=== PATIENT | female | born 1955 | race Caucasian/White ===

== ENCOUNTER 2017-10-24 14:19 | Inpatient (IN) | payer OTHER ==
[2017-10-24] MEDS: KETOROLAC 15 MG INJ IV (15:11)
[2017-10-24] MEDS: SOD CHLORIDE 0.9% 500 ML IV (15:12)
[2017-10-24] MEDS: LORAZEPAM 2 MG INJ IV (15:14)
[2017-10-24 15:17] LABS: ADD MAN DIFF? NO
[2017-10-24 15:18] LABS: WHITE BLOOD COUNT 9.9 10^3/ul (4.8-10.8)
[2017-10-24 15:18] LABS: BASOPHIL # 0.1 10^3/ul (0.0-0.1); BASOPHILS % 0.5 % (0.0-2.0); EOSINOPHILS # 0.2 10^3/ul (0.0-0.5); EOSINOPHILS % 2.1 % (0.0-7.0); HEMATOCRIT 34.1 % (37.0-47.0); LYMPHOCYTES % 30.5 % (15.0-51.0); MEAN CORPUSCULAR HEMOGLOBIN 27.3 pg (29.0-33.0); MEAN CORPUSCULAR HGB CONC 32.3 g/dl (32.0-37.0); MEAN CORPUSCULAR VOLUME 84.6 fl (82.0-101.0); MEAN PLATELET VOLUME 9.4 fl (7.4-10.4); MONOCYTE # 0.8 10^3/ul (0.3-0.9); MONOCYTES % 7.8 % (0.0-11.0); NEUTROPHIL # 5.8 10^3/ul (1.6-7.5); PLATELET COUNT 399 10^3/UL (140-415); RED BLOOD COUNT 4.03 10^6/ul (4.20-5.40); RED CELL DISTRIBUTION WIDTH 13.2 % (11.5-14.5)
[2017-10-24 15:38] LABS: ALANINE AMINOTRANSFERASE 25 IU/L (13-69); ALBUMIN 4.3 g/dl (3.3-4.9); ALBUMIN/GLOBULIN RATIO 0.95; ALKALINE PHOSPHATASE 97 IU/L (42-121); ANION GAP 20 (8-16); ASPARTATE AMINO TRANSFERASE 19 IU/L (15-46); BLOOD UREA NITROGEN 17 mg/dl (7-20); CALCIUM 10.2 mg/dl (8.4-10.2); CARBON DIOXIDE 26 mmol/L (21-31); CHLORIDE 101 mmol/L (97-110); CREATININE 1.05 mg/dl (0.44-1.00); GLUCOSE 110 mg/dl (70-220); LIPASE 335 U/L (23-300); POTASSIUM 3.7 mmol/L (3.5-5.1); SODIUM 143 mmol/L (135-144); TOTAL PROTEIN 8.8 g/dl (6.1-8.1)
[2017-10-24 15:49] LABS: TROPONIN-I < 0.012 ng/ml (0.00-0.12)
[2017-10-24] MEDS ORDERED: CEFTRIAXONE 1 GM/50 ML (PMX) 50 ML IVPB (17:00)
[2017-10-24] MEDS ORDERED: AZITHROMYCIN 500MG/NS (PMX) 250 ML IVPB (17:00)
[2017-10-24] MEDS: SODIUM CHLORIDE 0.9% 1L BAG IV* (17:18)
[2017-10-24] MEDS: SOD CHLORIDE 0.45% 1,000 ML IV ×2 (17:24→23:58)
[2017-10-24] MEDS: LEVOFLOXACIN 750MG/D5W (PMX) 150 ML IVPB (17:29)
[2017-10-24] MEDS ORDERED: ONDANSETRON 4 MG INJ IV (17:30)
[2017-10-24] MEDS ORDERED: NACL 0.9% 3 ML SYG IV (17:30)
[2017-10-24] MEDS ORDERED: hydrALAzine 20 MG INJ IV (17:30)
[2017-10-24] MEDS ORDERED: MAGNESIUM HYDROXIDE 30ML CUP PO (17:30)
[2017-10-24] MEDS ORDERED: LABETALOL HCL 20MG INJ IV (17:30)
[2017-10-24] MEDS ORDERED: NITROGLYCERIN (SL) 0.4 MG TAB SL (17:30)
[2017-10-24] MEDS ORDERED: DOCUSATE SODIUM 100 MG CAP PO (17:30)
[2017-10-24] MEDS: SOD CHLORIDE 0.9% 100 ML ×2 (17:49→20:08)
[2017-10-24] MEDS: IOHEXOL 100 ML (17:49)
[2017-10-24 17:54] LABS: ADD UMIC YES; UR ASCORBIC ACID NEGATIVE (NEGATIVE); UR BILIRUBIN (Dip) NEGATIVE (NEGATIVE); UR BLOOD (Dip) NEGATIVE (NEGATIVE); UR CLARITY CLEAR (CLEAR); UR COLOR STRAW (YELLOW); UR GLUCOSE (Dip) NEGATIVE (NEGATIVE); UR KETONES (Dip) NEGATIVE (NEGATIVE); UR LEUKOCYTE ESTERASE (Dip) TRACE Leu/ul (NEGATIVE); UR NITRITE (Dip) NEGATIVE (NEGATIVE); UR RBC 0 /HPF (0-5); UR SPECIFIC GRAVITY (Dip) 1.006 (1.003-1.030); UR TOTAL PROTEIN (Dip) NEGATIVE (NEGATIVE); UR UROBILINOGEN (Dip) NEGATIVE (NEGATIVE); UR WBC 1 /HPF (0-5)
[2017-10-24] MEDS: INSULIN ASPART [NOVOLOG] 3 ML PEN SC ×2 (18:00→21:00)
[2017-10-24] MEDS ORDERED: GLUCOSE GEL 15 GRAM TUBE BUCCAL (18:00)
[2017-10-24] MEDS ORDERED: GLUCOSE GEL 15 GRAM TUBE PO ×2 (18:00)
[2017-10-24] MEDS ORDERED: DEXTROSE 50% 50 ML SYRINGE IV ×2 (18:00)
[2017-10-24] MEDS ORDERED: GLUCAGON 1 MG INJ IM (18:00)
[2017-10-24] MEDS: IOHEXOL 300MG/ML 150 ML BTL (20:08)
[2017-10-24] MEDS: ATORVASTATIN 10 MG TAB PO ×2 (22:40→23:58)
[2017-10-24] MEDS: HYDROXYCHLOROQUINE 200 MG TAB PO (22:40)
[2017-10-24] MEDS: FAMOTIDINE 20 MG TAB PO (22:44)
[2017-10-24] MEDS: INSULIN GLARGINE [LANtus] 3 ML PEN SC (22:46)
[2017-10-24 23:01] LABS: TROPONIN-I < 0.012 ng/ml (0.00-0.12)
[2017-10-24] MEDS: HYDROCODONE/APAP (5/325) TAB PO (23:58)
[2017-10-24] MEDS: GABAPENTIN 300 MG CAP PO (23:58)
[2017-10-25] MEDS: ACCU-CHEK XX (02:00)
[2017-10-25] MEDS: INSULIN ASPART [NOVOLOG] 3 ML PEN SC ×4 (08:00→21:00)
[2017-10-25] MEDS: predniSONE 5 MG TAB PO (08:25)
[2017-10-25] MEDS: ALLOPURINOL 300 MG TAB PO (08:25)
[2017-10-25] MEDS: FAMOTIDINE 20 MG TAB PO ×2 (08:26→21:09)
[2017-10-25] MEDS: HYDROXYCHLOROQUINE 200 MG TAB PO ×2 (08:26→21:08)
[2017-10-25] MEDS: AMLODIPINE 10 MG TAB PO (08:26)
[2017-10-25] MEDS: MELOXICAM 15 MG TAB PO (08:27)
[2017-10-25] MEDS: HYDROCHLOROTHIAZIDE 25 MG TAB PO (08:28)
[2017-10-25] MEDS: HYDROCODONE/APAP (5/325) TAB PO ×2 (08:29→16:06)
[2017-10-25 09:06] LABS: ADD MAN DIFF? NO
[2017-10-25 09:12] LABS: WHITE BLOOD COUNT 7.4 10^3/ul (4.8-10.8)
[2017-10-25 09:12] LABS: BASOPHIL # 0.1 10^3/ul (0.0-0.1); BASOPHILS % 0.7 % (0.0-2.0); EOSINOPHILS # 0.3 10^3/ul (0.0-0.5); EOSINOPHILS % 3.4 % (0.0-7.0); HEMATOCRIT 31.7 % (37.0-47.0); HEMOGLOBIN 9.9 g/dl (12.0-16.0); LYMPHOCYTES # 2.6 10^3/ul (0.8-2.9); LYMPHOCYTES % 34.3 % (15.0-51.0); MEAN CORPUSCULAR HEMOGLOBIN 26.5 pg (29.0-33.0); MEAN CORPUSCULAR HGB CONC 31.2 g/dl (32.0-37.0); MEAN PLATELET VOLUME 9.9 fl (7.4-10.4); MONOCYTE # 0.8 10^3/ul (0.3-0.9); MONOCYTES % 11.3 % (0.0-11.0); NEUTROPHIL # 3.7 10^3/ul (1.6-7.5); NEUTROPHILS % 50.2 % (39.0-77.0); PLATELET COUNT 337 10^3/UL (140-415); RED BLOOD COUNT 3.73 10^6/ul (4.20-5.40); RED CELL DISTRIBUTION WIDTH 13.4 % (11.5-14.5)
[2017-10-25 09:22] LABS: HEMOGLOBIN A1C 6.3 % (0-5.9)
[2017-10-25 09:34] LABS: ALANINE AMINOTRANSFERASE 20 IU/L (13-69); ALBUMIN 3.6 g/dl (3.3-4.9); ALBUMIN/GLOBULIN RATIO 1.12; ALKALINE PHOSPHATASE 80 IU/L (42-121); ANION GAP 16 (8-16); ASPARTATE AMINO TRANSFERASE 18 IU/L (15-46); BLOOD UREA NITROGEN 14 mg/dl (7-20); CALCIUM 9.8 mg/dl (8.4-10.2); CARBON DIOXIDE 30 mmol/L (21-31); CHLORIDE 101 mmol/L (97-110); CHOLESTEROL 135 mg/dl (100-200); GLUCOSE 69 mg/dl (70-220); HDL CHOLESTEROL 65 mg/dl (35-98); LDL CHOLESTEROL,CALCULATED 56 mg/dl; MAGNESIUM 1.4 mg/dl (1.7-2.5); SODIUM 143 mmol/L (135-144); TOTAL PROTEIN 6.8 g/dl (6.1-8.1); TRIGLYCERIDES 70 mg/dl (0-149)
[2017-10-25 09:43] LABS: TROPONIN-I 0.013 ng/ml (0.00-0.12)
[2017-10-25] MEDS: LORAZEPAM 0.5 MG TAB PO (13:14)
[2017-10-25] MEDS ORDERED: ALBUTEROL/IPRATROPIUM (NEB) 3 ML AMP HHN (15:00)
[2017-10-25] MEDS: MAGNESIUM SULFATE 2 GM/50 ML 50 ML IVPB (15:30)
[2017-10-25] MEDS ORDERED: LORAZEPAM 1 MG TAB PO (16:00)
[2017-10-25] MEDS: LEVOFLOXACIN 750MG/D5W (PMX) 150 ML IVPB (17:20)
[2017-10-25 17:27] LABS: INR 1.01; PROTIME 13.4 Sec (11.9-14.9)
[2017-10-25 17:28] LABS: PARTIAL THROMBOPLASTIN TIME 36.6 Sec (25.0-35.0)
[2017-10-25 17:46] LABS: LACTATE DEHYDROGENASE 364 IU/L (313-618)
[2017-10-25 17:55] LABS: IMMUNOGLOBULIN A 454 mg/dl (70-400); IMMUNOGLOBULIN G 1236 mg/dl (700-1600); IMMUNOGLOBULIN M 88 mg/dl (40-230)
[2017-10-25] MEDS: LORAZEPAM 1 MG TAB PO (18:12)
[2017-10-25] MEDS: morphine 2 MG INJ IV (19:44)
[2017-10-25] MEDS: GABAPENTIN 300 MG CAP PO (21:09)
[2017-10-25] MEDS: INSULIN GLARGINE [LANtus] 3 ML PEN SC (21:34)
[2017-10-26] MEDS: ACCU-CHEK XX (02:00)
[2017-10-26 05:02] LABS: PROTEIN, TOTAL 7.4 g/dL (6.1-8.1)
[2017-10-26 07:31] LABS: ADD MAN DIFF? NO
[2017-10-26 07:34] LABS: BASOPHIL # 0.1 10^3/ul (0.0-0.1); BASOPHILS % 0.6 % (0.0-2.0); EOSINOPHILS # 0.2 10^3/ul (0.0-0.5); EOSINOPHILS % 2.1 % (0.0-7.0); HEMATOCRIT 31.4 % (37.0-47.0); HEMOGLOBIN 10.1 g/dl (12.0-16.0); LYMPHOCYTES # 2.5 10^3/ul (0.8-2.9); LYMPHOCYTES % 28.6 % (15.0-51.0); MEAN CORPUSCULAR HEMOGLOBIN 27.1 pg (29.0-33.0); MEAN CORPUSCULAR HGB CONC 32.2 g/dl (32.0-37.0); MEAN CORPUSCULAR VOLUME 84.2 fl (82.0-101.0); MEAN PLATELET VOLUME 9.3 fl (7.4-10.4); MONOCYTES % 11.2 % (0.0-11.0); NEUTROPHIL # 4.9 10^3/ul (1.6-7.5); NEUTROPHILS % 57.3 % (39.0-77.0); PLATELET COUNT 375 10^3/UL (140-415); RED BLOOD COUNT 3.73 10^6/ul (4.20-5.40); RED CELL DISTRIBUTION WIDTH 13.4 % (11.5-14.5)
[2017-10-26 07:34] LABS: WHITE BLOOD COUNT 8.6 10^3/ul (4.8-10.8)
[2017-10-26 08:00] LABS: ANION GAP 13 (8-16); BLOOD UREA NITROGEN 17 mg/dl (7-20); CALCIUM 10.1 mg/dl (8.4-10.2); CARBON DIOXIDE 30 mmol/L (21-31); CHLORIDE 101 mmol/L (97-110); CREATININE 1.21 mg/dl (0.44-1.00); GLUCOSE 100 mg/dl (70-220); PHOSPHORUS 4.4 mg/dl (2.5-4.9); POTASSIUM 3.8 mmol/L (3.5-5.1); SODIUM 140 mmol/L (135-144)
[2017-10-26] MEDS: INSULIN ASPART [NOVOLOG] 3 ML PEN SC ×4 (08:00→19:51)
[2017-10-26] MEDS: HYDROXYCHLOROQUINE 200 MG TAB PO ×2 (09:32→19:50)
[2017-10-26] MEDS: FAMOTIDINE 20 MG TAB PO ×2 (09:32→19:50)
[2017-10-26] MEDS: predniSONE 5 MG TAB PO (09:32)
[2017-10-26] MEDS: ALLOPURINOL 300 MG TAB PO (09:32)
[2017-10-26] MEDS: HYDROCHLOROTHIAZIDE 25 MG TAB PO (09:32)
[2017-10-26] MEDS: MELOXICAM 15 MG TAB PO (09:33)
[2017-10-26] MEDS: AMLODIPINE 10 MG TAB PO (09:33)
[2017-10-26] MEDS: morphine 2 MG INJ IV ×2 (09:36→17:18)
[2017-10-26] MEDS: LORAZEPAM 0.5 MG TAB PO (12:22)
[2017-10-26 13:36] LABS: ANA SCREEN NEGATIVE (NEGATIVE)
[2017-10-26 15:16] LABS: RHEUMATOID FACTOR NEGATIVE (NEGATIVE)
[2017-10-26 15:52] LABS: ALBUMIN 3.2 g/dL (3.8-4.8); ALPHA-1-GLOBULINS 0.5 g/dL (0.2-0.3); ALPHA-2-GLOBULINS 1.2 g/dL (0.5-0.9); BETA 2 GLOBULINS 0.7 g/dL (0.2-0.5); BETA GLOBULINS 0.5 g/dL (0.4-0.6); GAMMA GLOBULINS 1.3 g/dL (0.8-1.7)
[2017-10-26] MEDS: LEVOFLOXACIN 750MG/D5W (PMX) 150 ML IVPB (17:18)
[2017-10-26] MEDS: ATORVASTATIN 10 MG TAB PO (19:50)
[2017-10-26] MEDS: GABAPENTIN 300 MG CAP PO (19:51)
[2017-10-26] MEDS: INSULIN GLARGINE [LANtus] 3 ML PEN SC (19:55)
[2017-10-27] MEDS: ACCU-CHEK XX (02:00)
[2017-10-27] MEDS: INSULIN ASPART [NOVOLOG] 3 ML PEN SC ×4 (08:00→20:44)
[2017-10-27 08:28] LABS: ADD MAN DIFF? NO
[2017-10-27 08:33] LABS: WHITE BLOOD COUNT 8.8 10^3/ul (4.8-10.8)
[2017-10-27 08:33] LABS: BASOPHILS % 0.5 % (0.0-2.0); EOSINOPHILS # 0.2 10^3/ul (0.0-0.5); EOSINOPHILS % 2.4 % (0.0-7.0); HEMATOCRIT 32.4 % (37.0-47.0); HEMOGLOBIN 10.4 g/dl (12.0-16.0); LYMPHOCYTES # 2.9 10^3/ul (0.8-2.9); LYMPHOCYTES % 32.7 % (15.0-51.0); MEAN CORPUSCULAR HEMOGLOBIN 27.2 pg (29.0-33.0); MEAN CORPUSCULAR HGB CONC 32.1 g/dl (32.0-37.0); MEAN CORPUSCULAR VOLUME 84.6 fl (82.0-101.0); MEAN PLATELET VOLUME 9.5 fl (7.4-10.4); MONOCYTE # 0.9 10^3/ul (0.3-0.9); MONOCYTES % 10.1 % (0.0-11.0); NEUTROPHIL # 4.8 10^3/ul (1.6-7.5); NEUTROPHILS % 54.1 % (39.0-77.0); PLATELET COUNT 345 10^3/UL (140-415); RED BLOOD COUNT 3.83 10^6/ul (4.20-5.40); RED CELL DISTRIBUTION WIDTH 13.2 % (11.5-14.5)
[2017-10-27 09:06] LABS: ANION GAP 15 (8-16); BLOOD UREA NITROGEN 21 mg/dl (7-20); CALCIUM 10.1 mg/dl (8.4-10.2); CARBON DIOXIDE 31 mmol/L (21-31); CHLORIDE 101 mmol/L (97-110); GLUCOSE 88 mg/dl (70-220); MAGNESIUM 1.7 mg/dl (1.7-2.5); PHOSPHORUS 3.8 mg/dl (2.5-4.9); POTASSIUM 3.6 mmol/L (3.5-5.1); SODIUM 143 mmol/L (135-144)
[2017-10-27] MEDS: HYDROXYCHLOROQUINE 200 MG TAB PO ×2 (09:13→20:44)
[2017-10-27] MEDS: HYDROCHLOROTHIAZIDE 25 MG TAB PO (09:13)
[2017-10-27] MEDS: AMLODIPINE 10 MG TAB PO (09:13)
[2017-10-27] MEDS: predniSONE 5 MG TAB PO (09:13)
[2017-10-27] MEDS: MELOXICAM 15 MG TAB PO (09:13)
[2017-10-27] MEDS: ALLOPURINOL 300 MG TAB PO (09:13)
[2017-10-27] MEDS: FAMOTIDINE 20 MG TAB PO ×2 (09:13→20:44)
[2017-10-27] MEDS: LEVOFLOXACIN 750MG/D5W (PMX) 150 ML IVPB (17:28)
[2017-10-27] MEDS: BISACODYL (EC) 5 MG TAB PO (17:36)
[2017-10-27] MEDS: ATORVASTATIN 10 MG TAB PO (20:44)
[2017-10-27] MEDS: GABAPENTIN 300 MG CAP PO (20:44)
[2017-10-27] MEDS: INSULIN GLARGINE [LANtus] 3 ML PEN SC (20:45)
[2017-10-28] MEDS: ACCU-CHEK XX (02:00)
[2017-10-28] MEDS: INSULIN ASPART [NOVOLOG] 3 ML PEN SC ×4 (08:00→21:00)
[2017-10-28 08:56] LABS: ADD MAN DIFF? NO
[2017-10-28 09:06] LABS: BASOPHIL # 0.1 10^3/ul (0.0-0.1); BASOPHILS % 0.6 % (0.0-2.0); EOSINOPHILS # 0.1 10^3/ul (0.0-0.5); EOSINOPHILS % 1.2 % (0.0-7.0); HEMATOCRIT 33.6 % (37.0-47.0); HEMOGLOBIN 10.9 g/dl (12.0-16.0); LYMPHOCYTES # 2.8 10^3/ul (0.8-2.9); LYMPHOCYTES % 31.4 % (15.0-51.0); MEAN CORPUSCULAR HEMOGLOBIN 27.2 pg (29.0-33.0); MEAN CORPUSCULAR HGB CONC 32.4 g/dl (32.0-37.0); MEAN CORPUSCULAR VOLUME 83.8 fl (82.0-101.0); MEAN PLATELET VOLUME 9.7 fl (7.4-10.4); MONOCYTE # 0.9 10^3/ul (0.3-0.9); MONOCYTES % 9.4 % (0.0-11.0); NEUTROPHIL # 5.2 10^3/ul (1.6-7.5); NEUTROPHILS % 57.1 % (39.0-77.0); PLATELET COUNT 392 10^3/UL (140-415); RED BLOOD COUNT 4.01 10^6/ul (4.20-5.40); RED CELL DISTRIBUTION WIDTH 13.2 % (11.5-14.5)
[2017-10-28] MEDS: FAMOTIDINE 20 MG TAB PO ×2 (09:21→21:03)
[2017-10-28] MEDS: MELOXICAM 15 MG TAB PO (09:21)
[2017-10-28] MEDS: HYDROXYCHLOROQUINE 200 MG TAB PO ×2 (09:21→21:03)
[2017-10-28] MEDS: ALLOPURINOL 300 MG TAB PO (09:21)
[2017-10-28] MEDS: HYDROCHLOROTHIAZIDE 25 MG TAB PO (09:22)
[2017-10-28] MEDS: AMLODIPINE 10 MG TAB PO (09:22)
[2017-10-28 09:26] LABS: INR 1.09; PROTIME 14.3 Sec (11.9-14.9); PT RATIO 1.1
[2017-10-28 09:27] LABS: PARTIAL THROMBOPLASTIN TIME 35.7 Sec (25.0-35.0)
[2017-10-28] MEDS: predniSONE 5 MG TAB PO (09:28)
[2017-10-28 09:35] LABS: ANION GAP 17 (8-16); BLOOD UREA NITROGEN 30 mg/dl (7-20); CALCIUM 10.4 mg/dl (8.4-10.2); CARBON DIOXIDE 26 mmol/L (21-31); CHLORIDE 104 mmol/L (97-110); CREATININE 1.29 mg/dl (0.44-1.00); GLUCOSE 91 mg/dl (70-220); MAGNESIUM 1.7 mg/dl (1.7-2.5); PHOSPHORUS 4.4 mg/dl (2.5-4.9); POTASSIUM 3.2 mmol/L (3.5-5.1); SODIUM 144 mmol/L (135-144)
[2017-10-28] MEDS: MIDAZOLAM 1 MG/ML 2 ML INJ (12:00)
[2017-10-28] MEDS: LIDOCAINE 1% (MDV) 10 ML INJ (12:00)
[2017-10-28] MEDS: FENTAnyl 50 MCG/ML VIAL (12:00)
[2017-10-28] MEDS: SOD CHLORIDE 0.9% 500 ML (12:00)
[2017-10-28] MEDS: POTASSIUM CHLORIDE (SR) 20 MEQ TAB PO (14:08)
[2017-10-28] MEDS: LEVOFLOXACIN 750 MG TABLET PO (17:41)
[2017-10-28] MEDS: ATORVASTATIN 10 MG TAB PO (21:03)
[2017-10-28] MEDS: GABAPENTIN 300 MG CAP PO (21:03)
[2017-10-28] MEDS: INSULIN GLARGINE [LANtus] 3 ML PEN SC (21:04)
[2017-10-28] MEDS: ACETAMINOPHEN 325 MG TAB PO (21:13)
[2017-10-29] MEDS: ACCU-CHEK XX (02:00)
[2017-10-29] MEDS: ACETAMINOPHEN 325 MG TAB PO ×3 (04:50→21:20)
[2017-10-29] MEDS: LEVOFLOXACIN 750 MG TABLET PO (06:28)
[2017-10-29 07:22] LABS: ALBUMIN 3.8 g/dl (3.3-4.9); ANION GAP 17 (8-16); BLOOD UREA NITROGEN 34 mg/dl (7-20); CARBON DIOXIDE 27 mmol/L (21-31); CHLORIDE 103 mmol/L (97-110); CREATININE 1.38 mg/dl (0.44-1.00); GLUCOSE 93 mg/dl (70-220); MAGNESIUM 1.6 mg/dl (1.7-2.5); PHOSPHORUS 3.8 mg/dl (2.5-4.9); POTASSIUM 3.5 mmol/L (3.5-5.1); SODIUM 143 mmol/L (135-144)
[2017-10-29] MEDS: INSULIN ASPART [NOVOLOG] 3 ML PEN SC ×4 (08:00→21:00)
[2017-10-29] MEDS: FAMOTIDINE 20 MG TAB PO ×2 (08:50→21:21)
[2017-10-29] MEDS: ALLOPURINOL 300 MG TAB PO (08:51)
[2017-10-29] MEDS: MELOXICAM 15 MG TAB PO (08:51)
[2017-10-29] MEDS: predniSONE 5 MG TAB PO (08:51)
[2017-10-29] MEDS: AMLODIPINE 10 MG TAB PO (08:52)
[2017-10-29] MEDS: HYDROXYCHLOROQUINE 200 MG TAB PO ×2 (08:52→21:21)
[2017-10-29] MEDS: HYDROCHLOROTHIAZIDE 25 MG TAB PO (08:53)
[2017-10-29] MEDS ORDERED: POLYETHYLENE GLYCOL 17 GM PACKET PO (10:30)
[2017-10-29] MEDS: MAGNESIUM OXIDE 400 MG TAB PO (11:10)
[2017-10-29] MEDS: POTASSIUM CHLORIDE (SR) 20 MEQ TAB PO (11:10)
[2017-10-29] MEDS: GABAPENTIN 300 MG CAP PO (21:20)
[2017-10-29] MEDS: ATORVASTATIN 10 MG TAB PO (21:21)
[2017-10-29] MEDS: INSULIN GLARGINE [LANtus] 3 ML PEN SC (21:22)
[2017-10-29] MEDS ORDERED: VITAMIN A & D 5 GM OINT PACKET TOP (23:14)
[2017-10-30] MEDS: ACCU-CHEK XX (02:00)
[2017-10-30] MEDS: HYDROCODONE/APAP (5/325) TAB PO ×2 (02:52→08:59)
[2017-10-30] MEDS: LEVOFLOXACIN 750 MG TABLET PO (05:19)
[2017-10-30] MEDS: INSULIN ASPART [NOVOLOG] 3 ML PEN SC ×4 (08:02→21:00)
[2017-10-30] MEDS: MELOXICAM 15 MG TAB PO (08:04)
[2017-10-30] MEDS: ALLOPURINOL 300 MG TAB PO (08:04)
[2017-10-30] MEDS: predniSONE 5 MG TAB PO (08:04)
[2017-10-30] MEDS: HYDROXYCHLOROQUINE 200 MG TAB PO ×2 (08:04→21:04)
[2017-10-30] MEDS: HYDROCHLOROTHIAZIDE 25 MG TAB PO (08:06)
[2017-10-30] MEDS: AMLODIPINE 10 MG TAB PO (08:07)
[2017-10-30] MEDS: FAMOTIDINE 20 MG TAB PO ×2 (08:08→21:04)
[2017-10-30] MEDS ORDERED: VITAMIN A & D 5 GM OINT PACKET TOP (08:19)
[2017-10-30 09:03] LABS: ALBUMIN 3.6 g/dl (3.3-4.9); ANION GAP 15 (8-16); BLOOD UREA NITROGEN 29 mg/dl (7-20); CALCIUM 9.8 mg/dl (8.4-10.2); CARBON DIOXIDE 27 mmol/L (21-31); CHLORIDE 101 mmol/L (97-110); CREATININE 1.21 mg/dl (0.44-1.00); GLUCOSE 94 mg/dl (70-220); MAGNESIUM 1.6 mg/dl (1.7-2.5); POTASSIUM 3.4 mmol/L (3.5-5.1); SODIUM 140 mmol/L (135-144)
[2017-10-30] MEDS: MAGNESIUM OXIDE 400 MG TAB PO (10:49)
[2017-10-30] MEDS: POTASSIUM CHLORIDE (SR) 20 MEQ TAB PO (10:49)
[2017-10-30] MEDS: LIDOCAINE 5% PATCH TD (14:48)
[2017-10-30] MEDS: LORAZEPAM 0.5 MG TAB PO (18:38)
[2017-10-30] MEDS: INSULIN GLARGINE [LANtus] 3 ML PEN SC (21:03)
[2017-10-30] MEDS: GABAPENTIN 300 MG CAP PO (21:03)
[2017-10-30] MEDS: ATORVASTATIN 10 MG TAB PO (21:04)
[2017-10-31] MEDS: ACCU-CHEK XX (02:00)
[2017-10-31 06:35] LABS: ALBUMIN 3.7 g/dl (3.3-4.9); ANION GAP 17 (8-16); BLOOD UREA NITROGEN 28 mg/dl (7-20); CALCIUM 10.1 mg/dl (8.4-10.2); CARBON DIOXIDE 24 mmol/L (21-31); CHLORIDE 104 mmol/L (97-110); CREATININE 1.07 mg/dl (0.44-1.00); GLUCOSE 97 mg/dl (70-220); MAGNESIUM 1.7 mg/dl (1.7-2.5); PHOSPHORUS 4.4 mg/dl (2.5-4.9); POTASSIUM 3.7 mmol/L (3.5-5.1); SODIUM 141 mmol/L (135-144)
[2017-10-31] MEDS: INSULIN ASPART [NOVOLOG] 3 ML PEN SC ×4 (08:09→21:00)
[2017-10-31] MEDS: HYDROCHLOROTHIAZIDE 25 MG TAB PO (08:11)
[2017-10-31] MEDS: predniSONE 5 MG TAB PO (08:11)
[2017-10-31] MEDS: ALLOPURINOL 300 MG TAB PO (08:11)
[2017-10-31] MEDS: MELOXICAM 15 MG TAB PO (08:11)
[2017-10-31] MEDS: FAMOTIDINE 20 MG TAB PO ×2 (08:11→21:05)
[2017-10-31] MEDS: AMLODIPINE 10 MG TAB PO (08:12)
[2017-10-31] MEDS: HYDROXYCHLOROQUINE 200 MG TAB PO ×2 (08:12→21:05)
[2017-10-31] MEDS: LIDOCAINE 5% PATCH TD (08:15)
[2017-10-31] MEDS: HYDROCODONE/APAP (5/325) TAB PO ×2 (08:20→17:33)
[2017-10-31] MEDS ORDERED: VITAMIN A & D 5 GM OINT PACKET TOP (10:45)
[2017-10-31] MEDS: ATORVASTATIN 10 MG TAB PO (21:05)
[2017-10-31] MEDS: GABAPENTIN 300 MG CAP PO (21:05)
[2017-10-31] MEDS: INSULIN GLARGINE [LANtus] 3 ML PEN SC (21:08)
[2017-11-01] MEDS: ACCU-CHEK XX (01:58)
[2017-11-01] MEDS: INSULIN ASPART [NOVOLOG] 3 ML PEN SC ×2 (08:02→12:05)
[2017-11-01] MEDS: ALLOPURINOL 300 MG TAB PO (08:04)
[2017-11-01] MEDS: MELOXICAM 15 MG TAB PO (08:04)
[2017-11-01] MEDS: FAMOTIDINE 20 MG TAB PO (08:05)
[2017-11-01] MEDS: HYDROXYCHLOROQUINE 200 MG TAB PO (08:05)
[2017-11-01] MEDS: LIDOCAINE 5% PATCH TD (08:06)
[2017-11-01] MEDS: AMLODIPINE 10 MG TAB PO (08:08)
[2017-11-01] MEDS: HYDROCHLOROTHIAZIDE 25 MG TAB PO (08:08)
[2017-11-01] MEDS: predniSONE 5 MG TAB PO (08:33)
[2017-11-01] MEDS: HYDROCODONE/APAP (5/325) TAB PO (12:07)
== END 2017-11-01 13:15 | disposition home or self-care (01) | DRG 166 ==
LOC: MS2 10-29 22:30 → E/R 14:19 → MS4 16:50
PROC: 0PB03ZX Excision of Sternum, Percutaneous Approach, Diagnostic (ICD-10-PCS; principal; 2017-10-28)
DX: J18.9 Pneumonia, unspecified organism (principal); J96.90 Respiratory failure, unspecified, unspecified whether with hypoxia or hypercapnia; N17.9 Acute kidney failure, unspecified; C79.51 Secondary malignant neoplasm of bone; C64.2 Malignant neoplasm of left kidney, except renal pelvis; C78.02 Secondary malignant neoplasm of left lung; C78.01 Secondary malignant neoplasm of right lung; C78.89 Secondary malignant neoplasm of other digestive organs; I10 Essential (primary) hypertension; M06.9 Rheumatoid arthritis, unspecified; E11.9 Type 2 diabetes mellitus without complications; E78.5 Hyperlipidemia, unspecified; R07.89 Other chest pain; Z79.890 Hormone replacement therapy
CPT/HCPCS: 36415; 70450; 70553; 71045; 71275; 74177; 74185; 77012; 78306; 80048; 80053; 80061; 80069; 81001; 82784; 82962; 83036; 83615; 83690; 83735; 84100; 84155; 84165; 84443; 84484; 85025; 85384; 85610; 85730; 86038; 86320; 86430; 87040; 87400; 88307; 88312; 88313; 93005; 96372; 96374; 96375; 99285-25; A9503

== ENCOUNTER 2017-12-02 17:38 | Emergency (ER) | payer OTHER ==
[2017-12-02 19:40] LABS: ADD MAN DIFF? NO
[2017-12-02 19:46] LABS: BASOPHIL # 0.1 10^3/ul (0.0-0.1); BASOPHILS % 0.5 % (0.0-2.0); EOSINOPHILS # 0.2 10^3/ul (0.0-0.5); EOSINOPHILS % 1.3 % (0.0-7.0); HEMATOCRIT 35.1 % (37.0-47.0); HEMOGLOBIN 11.2 g/dl (12.0-16.0); LYMPHOCYTES # 3.2 10^3/ul (0.8-2.9); LYMPHOCYTES % 27.2 % (15.0-51.0); MEAN CORPUSCULAR HEMOGLOBIN 26.8 pg (29.0-33.0); MEAN CORPUSCULAR HGB CONC 31.9 g/dl (32.0-37.0); MEAN PLATELET VOLUME 9.6 fl (7.4-10.4); MONOCYTE # 0.9 10^3/ul (0.3-0.9); NEUTROPHIL # 7.4 10^3/ul (1.6-7.5); NEUTROPHILS % 62.6 % (39.0-77.0); PLATELET COUNT 440 10^3/UL (140-415); RED BLOOD COUNT 4.18 10^6/ul (4.20-5.40); RED CELL DISTRIBUTION WIDTH 13.5 % (11.5-14.5)
[2017-12-02 19:46] LABS: WHITE BLOOD COUNT 11.8 10^3/ul (4.8-10.8)
[2017-12-02 20:04] LABS: ANION GAP 18 (8-16); BLOOD UREA NITROGEN 20 mg/dl (7-20); CALCIUM 11.2 mg/dl (8.4-10.2); CARBON DIOXIDE 27 mmol/L (21-31); CHLORIDE 97 mmol/L (97-110); CREATININE 1.03 mg/dl (0.44-1.00); GLUCOSE 129 mg/dl (70-220); SODIUM 138 mmol/L (135-144)
[2017-12-02 20:16] LABS: TROPONIN-I < 0.012 ng/ml (0.00-0.12)
[2017-12-02] MEDS: SOD CHLORIDE 0.9% 100 ML (21:43)
[2017-12-02] MEDS: IOHEXOL 100 ML (21:43)
[2017-12-02] MEDS: morphine 4 MG/ML VIAL IV (23:56)
[2017-12-03] MEDS: HYDROCODONE/APAP (10/325) TAB PO (00:11)
[2017-12-03] MEDS: KETOROLAC 15 MG INJ IV (00:12)
[2017-12-03] MEDS: SOD CHLORIDE 0.9% 1,000 ML IV (01:06)
== END 2017-12-03 01:16 | disposition home or self-care (01) ==
LOC: E/R 12-03 01:16
DX: R07.9 Chest pain, unspecified (principal); D72.823 Leukemoid reaction; D47.3 Essential (hemorrhagic) thrombocythemia; E83.52 Hypercalcemia; R42 Dizziness and giddiness; I10 Essential (primary) hypertension; E11.9 Type 2 diabetes mellitus without complications; Z85.118 Personal history of other malignant neoplasm of bronchus and lung; Z79.84 Long term (current) use of oral hypoglycemic drugs
CPT/HCPCS: 36415; 71045; 71275; 80048; 84484; 85025; 93005; 96374; 99285-25

== ENCOUNTER 2018-01-27 09:11 | Inpatient (IN) | payer OTHER, MEDICARE ==
[2018-01-27] MEDS ORDERED: CEFAZOLIN 2 GM/50 ML (PMX) 50 ML IVPB (11:30)
[2018-01-27] MEDS ORDERED: MEPERIDINE 100 MG INJ (14:20)
[2018-01-27] MEDS ORDERED: GLYCOPYRROLATE 0.4 MG INJ ×2 (14:20→15:23)
[2018-01-27] MEDS ORDERED: PROPOFOL 20 ML (14:20)
[2018-01-27] MEDS ORDERED: NEOSTIGMINE 3 MG/3 ML SYRINGE ×2 (14:20→15:23)
[2018-01-27] MEDS ORDERED: SUCCINYLCHOLINE CHLORIDE 100 MG/5 ML SYG IV (14:20)
[2018-01-27] MEDS ORDERED: ROCURONIUM 50 MG INJ ×2 (14:20→15:23)
[2018-01-27] MEDS ORDERED: LIDOCAINE 2% (SDV) 5 ML INJ (14:20)
[2018-01-27] MEDS ORDERED: METOCLOPRAMIDE 10 MG INJ (14:27)
[2018-01-27] MEDS ORDERED: CEFAZOLIN 1 GM INJ (14:27)
[2018-01-27] MEDS ORDERED: ONDANSETRON 4 MG INJ (14:27)
[2018-01-27] MEDS ORDERED: GLUCAGON 1 MG INJ IM (15:00)
[2018-01-27] MEDS ORDERED: DEXTROSE 50% 50 ML SYRINGE IV ×2 (15:00)
[2018-01-27] MEDS ORDERED: ACETAMINOPHEN 325 MG TAB PO (15:00)
[2018-01-27] MEDS ORDERED: GLUCOSE GEL 15 GRAM TUBE BUCCAL (15:00)
[2018-01-27] MEDS: CEFAZOLIN 2 GM/50 ML (PMX) 50 ML IVPB ×2 (15:00→23:09)
[2018-01-27] MEDS ORDERED: GLUCOSE GEL 15 GRAM TUBE PO ×2 (15:00)
[2018-01-27] MEDS: BUPIVACAINE 0.5% (SDV) 30 ML INJ (18:04)
[2018-01-27] MEDS ORDERED: OXYCODONE/ACETAMINOPHEN (5/325) TAB PO ×2 (18:30)
[2018-01-27] MEDS ORDERED: LABETALOL HCL 20MG INJ IV (18:30)
[2018-01-27] MEDS ORDERED: METOCLOPRAMIDE 10 MG INJ IV (18:30)
[2018-01-27] MEDS ORDERED: FENTAnyl 50 MCG/ML VIAL IV ×2 (18:30)
[2018-01-27] MEDS ORDERED: DIPHENHYDRAMINE 50 MG INJ IV (18:30)
[2018-01-27] MEDS ORDERED: MIDAZOLAM 1 MG/ML 2 ML INJ IV (18:30)
[2018-01-27] MEDS ORDERED: HYDROmorphONE 1 MG/5 ML IV SYRINGE IV ×2 (18:30)
[2018-01-27] MEDS ORDERED: hydrALAzine 20 MG INJ IV (18:30)
[2018-01-27] MEDS ORDERED: EPHEDrine SULFATE 50 MG/5 ML SYG IV (18:30)
[2018-01-27] MEDS ORDERED: ONDANSETRON 4 MG INJ IV (18:30)
[2018-01-27] MEDS: ONDANSETRON 4 MG INJ IV (18:31)
[2018-01-27] MEDS: MEPERIDINE 25 MG INJ IV (18:31)
[2018-01-27] MEDS: FENTAnyl 50 MCG/ML VIAL IV ×2 (18:31→18:40)
[2018-01-27] MEDS: HYDROmorphONE 1 MG/5 ML IV SYRINGE IV (19:29)
[2018-01-27] MEDS: SOD CHLORIDE 0.9% 1,000 ML IV (20:13)
[2018-01-27] MEDS: GABAPENTIN 300 MG CAP PO (20:24)
[2018-01-27] MEDS: morphine 2 MG INJ IV (20:24)
[2018-01-27] MEDS: metFORMIN 500 MG TAB PO (20:25)
[2018-01-27] MEDS: INSULIN ASPART [NOVOLOG] 3 ML PEN SC (20:27)
[2018-01-28] MEDS: morphine 2 MG INJ IV ×4 (01:07→08:26)
[2018-01-28] MEDS: ACCU-CHEK XX (02:00)
[2018-01-28] MEDS: PANTOPRAZOLE (EC) 40 MG TAB PO (05:35)
[2018-01-28] MEDS: SOD CHLORIDE 0.9% 1,000 ML IV ×3 (06:12→19:12)
[2018-01-28] MEDS: CEFAZOLIN 2 GM/50 ML (PMX) 50 ML IVPB (06:12)
[2018-01-28 06:22] LABS: ADD MAN DIFF? NO
[2018-01-28 06:29] LABS: WHITE BLOOD COUNT 8.3 10^3/ul (4.8-10.8)
[2018-01-28 06:29] LABS: BASOPHILS % 0.2 % (0.0-2.0); EOSINOPHILS % 0.2 % (0.0-7.0); HEMATOCRIT 33.7 % (37.0-47.0); HEMOGLOBIN 10.7 g/dl (12.0-16.0); LYMPHOCYTES # 2.1 10^3/ul (0.8-2.9); LYMPHOCYTES % 25.3 % (15.0-51.0); MEAN CORPUSCULAR HEMOGLOBIN 27.2 pg (29.0-33.0); MEAN CORPUSCULAR HGB CONC 31.8 g/dl (32.0-37.0); MEAN CORPUSCULAR VOLUME 85.5 fl (82.0-101.0); MEAN PLATELET VOLUME 9.6 fl (7.4-10.4); MONOCYTE # 0.7 10^3/ul (0.3-0.9); MONOCYTES % 8.1 % (0.0-11.0); NEUTROPHIL # 5.5 10^3/ul (1.6-7.5); NEUTROPHILS % 65.8 % (39.0-77.0); PLATELET COUNT 317 10^3/UL (140-415); RED BLOOD COUNT 3.94 10^6/ul (4.20-5.40); RED CELL DISTRIBUTION WIDTH 17.5 % (11.5-14.5)
[2018-01-28 06:56] LABS: ANION GAP 15 (8-16); BLOOD UREA NITROGEN 14 mg/dl (7-20); CALCIUM 8.3 mg/dl (8.4-10.2); CARBON DIOXIDE 28 mmol/L (21-31); CHLORIDE 102 mmol/L (97-110); CREATININE 1.02 mg/dl (0.44-1.00); GLUCOSE 98 mg/dl (70-220); POTASSIUM 4.9 mmol/L (3.5-5.1); SODIUM 140 mmol/L (135-144)
[2018-01-28 07:45] LABS: HEMOGLOBIN A1C 6.4 % (0-5.9)
[2018-01-28] MEDS: INSULIN ASPART [NOVOLOG] 3 ML PEN SC ×4 (08:00→20:49)
[2018-01-28] MEDS: HYDROCHLOROTHIAZIDE 25 MG TAB PO (08:18)
[2018-01-28] MEDS: predniSONE 5 MG TAB PO (08:18)
[2018-01-28] MEDS: ARIPIPRAZOLE 5 MG TAB PO (08:18)
[2018-01-28] MEDS: HYDROXYCHLOROQUINE 200 MG TAB PO ×2 (08:18→20:42)
[2018-01-28] MEDS: AMLODIPINE 10 MG TAB PO (08:18)
[2018-01-28] MEDS: ALLOPURINOL 300 MG TAB PO (08:18)
[2018-01-28] MEDS: HYDROCORTISONE 100 MG INJ IV (08:19)
[2018-01-28] MEDS: metFORMIN 500 MG TAB PO ×2 (08:26→18:07)
[2018-01-28] MEDS: HYDROCODONE/APAP (5/325) TAB PO (16:49)
[2018-01-28] MEDS: GABAPENTIN 300 MG CAP PO (20:42)
[2018-01-29] MEDS: ACCU-CHEK XX (02:00)
[2018-01-29] MEDS: PANTOPRAZOLE (EC) 40 MG TAB PO (06:13)
[2018-01-29] MEDS: HYDROCODONE/APAP (5/325) TAB PO (06:13)
[2018-01-29 06:29] LABS: ADD MAN DIFF? NO
[2018-01-29] MEDS: SOD CHLORIDE 0.9% 1,000 ML IV (06:29)
[2018-01-29 06:33] LABS: WHITE BLOOD COUNT 8.4 10^3/ul (4.8-10.8)
[2018-01-29 06:33] LABS: BASOPHILS % 0.1 % (0.0-2.0); EOSINOPHILS % 0.4 % (0.0-7.0); HEMATOCRIT 29.9 % (37.0-47.0); HEMOGLOBIN 9.4 g/dl (12.0-16.0); LYMPHOCYTES # 2.4 10^3/ul (0.8-2.9); LYMPHOCYTES % 28.7 % (15.0-51.0); MEAN CORPUSCULAR HEMOGLOBIN 27.6 pg (29.0-33.0); MEAN CORPUSCULAR HGB CONC 31.4 g/dl (32.0-37.0); MEAN CORPUSCULAR VOLUME 87.7 fl (82.0-101.0); MEAN PLATELET VOLUME 9.6 fl (7.4-10.4); MONOCYTE # 0.9 10^3/ul (0.3-0.9); MONOCYTES % 10.2 % (0.0-11.0); NEUTROPHIL # 5.1 10^3/ul (1.6-7.5); NEUTROPHILS % 60.4 % (39.0-77.0); PLATELET COUNT 276 10^3/UL (140-415); RED BLOOD COUNT 3.41 10^6/ul (4.20-5.40); RED CELL DISTRIBUTION WIDTH 17.9 % (11.5-14.5)
[2018-01-29 06:59] LABS: ANION GAP 14 (8-16); BLOOD UREA NITROGEN 12 mg/dl (7-20); CALCIUM 7.3 mg/dl (8.4-10.2); CARBON DIOXIDE 27 mmol/L (21-31); CHLORIDE 102 mmol/L (97-110); CREATININE 1.08 mg/dl (0.44-1.00); GLUCOSE 93 mg/dl (70-220); MAGNESIUM 1.4 mg/dl (1.7-2.5); PHOSPHORUS 2.8 mg/dl (2.5-4.9); POTASSIUM 4.1 mmol/L (3.5-5.1); SODIUM 139 mmol/L (135-144)
[2018-01-29] MEDS: INSULIN ASPART [NOVOLOG] 3 ML PEN SC ×4 (08:00→20:07)
[2018-01-29] MEDS: metFORMIN 500 MG TAB PO ×2 (08:12→17:16)
[2018-01-29] MEDS: ALLOPURINOL 300 MG TAB PO (08:59)
[2018-01-29] MEDS: ARIPIPRAZOLE 5 MG TAB PO (08:59)
[2018-01-29] MEDS: HYDROXYCHLOROQUINE 200 MG TAB PO ×2 (08:59→20:07)
[2018-01-29] MEDS: HYDROCHLOROTHIAZIDE 25 MG TAB PO (09:00)
[2018-01-29] MEDS: predniSONE 5 MG TAB PO (09:00)
[2018-01-29] MEDS: AMLODIPINE 10 MG TAB PO (09:00)
[2018-01-29] MEDS: morphine LIQ (10 MG/5 ML) CUP PO ×3 (09:12→20:19)
[2018-01-29] MEDS: DOCUSATE SODIUM 100 MG CAP PO ×2 (12:45→20:07)
[2018-01-29] MEDS: MAGNESIUM SULFATE 2 GM/50 ML 50 ML IVPB (12:46)
[2018-01-29] MEDS: ONDANSETRON 4 MG INJ IV (16:52)
[2018-01-29] MEDS: GABAPENTIN 300 MG CAP PO (20:07)
[2018-01-30] MEDS: ACCU-CHEK XX (01:36)
[2018-01-30 05:42] LABS: ADD MAN DIFF? NO
[2018-01-30 05:45] LABS: BASOPHILS % 0.3 % (0.0-2.0); EOSINOPHILS # 0.1 10^3/ul (0.0-0.5); HEMATOCRIT 27.9 % (37.0-47.0); HEMOGLOBIN 8.9 g/dl (12.0-16.0); LYMPHOCYTES # 3.1 10^3/ul (0.8-2.9); LYMPHOCYTES % 35.1 % (15.0-51.0); MEAN CORPUSCULAR HEMOGLOBIN 27.9 pg (29.0-33.0); MEAN CORPUSCULAR HGB CONC 31.9 g/dl (32.0-37.0); MEAN CORPUSCULAR VOLUME 87.5 fl (82.0-101.0); MEAN PLATELET VOLUME 9.5 fl (7.4-10.4); MONOCYTE # 0.9 10^3/ul (0.3-0.9); NEUTROPHIL # 4.7 10^3/ul (1.6-7.5); NEUTROPHILS % 53.4 % (39.0-77.0); PLATELET COUNT 246 10^3/UL (140-415); RED BLOOD COUNT 3.19 10^6/ul (4.20-5.40); RED CELL DISTRIBUTION WIDTH 18.2 % (11.5-14.5)
[2018-01-30 05:45] LABS: WHITE BLOOD COUNT 8.7 10^3/ul (4.8-10.8)
[2018-01-30] MEDS: morphine LIQ (10 MG/5 ML) CUP PO ×3 (05:54→20:04)
[2018-01-30] MEDS: PANTOPRAZOLE (EC) 40 MG TAB PO (05:54)
[2018-01-30 06:10] LABS: ANION GAP 12 (8-16); BLOOD UREA NITROGEN 13 mg/dl (7-20); CALCIUM 7.4 mg/dl (8.4-10.2); CARBON DIOXIDE 28 mmol/L (21-31); CHLORIDE 102 mmol/L (97-110); CREATININE 1.14 mg/dl (0.44-1.00); GLUCOSE 96 mg/dl (70-220); PHOSPHORUS 1.9 mg/dl (2.5-4.9); POTASSIUM 4.1 mmol/L (3.5-5.1); SODIUM 138 mmol/L (135-144)
[2018-01-30] MEDS: INSULIN ASPART [NOVOLOG] 3 ML PEN SC ×4 (08:00→20:12)
[2018-01-30] MEDS: ALLOPURINOL 300 MG TAB PO (08:25)
[2018-01-30] MEDS: ARIPIPRAZOLE 5 MG TAB PO (08:25)
[2018-01-30] MEDS: HYDROCODONE/APAP (5/325) TAB PO (08:26)
[2018-01-30] MEDS: AMLODIPINE 10 MG TAB PO (08:26)
[2018-01-30] MEDS: HYDROCHLOROTHIAZIDE 25 MG TAB PO (08:26)
[2018-01-30] MEDS: predniSONE 5 MG TAB PO (08:26)
[2018-01-30] MEDS: DOCUSATE SODIUM 100 MG CAP PO ×2 (08:26→20:04)
[2018-01-30] MEDS: HYDROXYCHLOROQUINE 200 MG TAB PO ×2 (08:26→20:04)
[2018-01-30] MEDS: metFORMIN 500 MG TAB PO ×2 (08:26→17:35)
[2018-01-30] MEDS ORDERED: ALBUTEROL/IPRATROPIUM (NEB) 3 ML AMP HHN (18:00)
[2018-01-30] MEDS: ONDANSETRON 4 MG INJ IV (20:03)
[2018-01-30] MEDS: GABAPENTIN 300 MG CAP PO (20:04)
[2018-01-30] MEDS: BUDESONIDE (NEB) 0.5MG/2ML AMP HHN (20:12)
[2018-01-30] MEDS: ALBUTEROL/IPRATROPIUM (NEB) 3 ML AMP HHN (20:12)
[2018-01-31] MEDS: ACCU-CHEK XX (02:00)
[2018-01-31] MEDS: morphine LIQ (10 MG/5 ML) CUP PO ×3 (04:17→14:44)
[2018-01-31] MEDS: PANTOPRAZOLE (EC) 40 MG TAB PO (05:43)
[2018-01-31 05:54] LABS: ADD MAN DIFF? NO
[2018-01-31 06:02] LABS: BASOPHILS % 0.3 % (0.0-2.0); EOSINOPHILS # 0.1 10^3/ul (0.0-0.5); EOSINOPHILS % 1.2 % (0.0-7.0); HEMATOCRIT 28.8 % (37.0-47.0); LYMPHOCYTES % 27.9 % (15.0-51.0); MEAN CORPUSCULAR HEMOGLOBIN 27.3 pg (29.0-33.0); MEAN CORPUSCULAR HGB CONC 31.3 g/dl (32.0-37.0); MEAN CORPUSCULAR VOLUME 87.3 fl (82.0-101.0); MEAN PLATELET VOLUME 9.8 fl (7.4-10.4); MONOCYTE # 0.6 10^3/ul (0.3-0.9); MONOCYTES % 8.5 % (0.0-11.0); NEUTROPHIL # 4.5 10^3/ul (1.6-7.5); NEUTROPHILS % 61.7 % (39.0-77.0); PLATELET COUNT 238 10^3/UL (140-415); RED CELL DISTRIBUTION WIDTH 18.2 % (11.5-14.5)
[2018-01-31 06:02] LABS: WHITE BLOOD COUNT 7.3 10^3/ul (4.8-10.8)
[2018-01-31 07:17] LABS: ANION GAP 12 (8-16); BLOOD UREA NITROGEN 13 mg/dl (7-20); CARBON DIOXIDE 28 mmol/L (21-31); CHLORIDE 102 mmol/L (97-110); CREATININE 1.14 mg/dl (0.44-1.00); GLUCOSE 105 mg/dl (70-220); POTASSIUM 4.2 mmol/L (3.5-5.1); SODIUM 138 mmol/L (135-144)
[2018-01-31 07:18] LABS: CALCIUM 7.9 mg/dl (8.4-10.2); MAGNESIUM 1.7 mg/dl (1.7-2.5); PHOSPHORUS 2.3 mg/dl (2.5-4.9)
[2018-01-31] MEDS: INSULIN ASPART [NOVOLOG] 3 ML PEN SC ×3 (08:00→17:26)
[2018-01-31] MEDS: predniSONE 5 MG TAB PO (08:31)
[2018-01-31] MEDS: AMLODIPINE 10 MG TAB PO (08:31)
[2018-01-31] MEDS: HYDROXYCHLOROQUINE 200 MG TAB PO (08:31)
[2018-01-31] MEDS: ARIPIPRAZOLE 5 MG TAB PO (08:31)
[2018-01-31] MEDS: HYDROCHLOROTHIAZIDE 25 MG TAB PO (08:31)
[2018-01-31] MEDS: DOCUSATE SODIUM 100 MG CAP PO (08:32)
[2018-01-31] MEDS: ALLOPURINOL 300 MG TAB PO (08:32)
[2018-01-31] MEDS: metFORMIN 500 MG TAB PO ×2 (08:32→17:33)
[2018-01-31] MEDS: ALBUTEROL/IPRATROPIUM (NEB) 3 ML AMP HHN ×2 (08:48→13:37)
[2018-01-31] MEDS: BUDESONIDE (NEB) 0.5MG/2ML AMP HHN (08:48)
[2018-01-31 11:43] LABS: AADO2 Arterial 81.4 mmHg (7.0-24.0); Arterial Base Excess -0.3 mmol/L (-3.0-3); Arterial Blood Gas Oxygen Sat 92.5 mmHG (95.0-98.0); Arterial COHb 0.2 % (0.0-3.0); Arterial HCO3 24.5 mmol/L (22.0-26.0); Arterial MetHb 0.3 % (0.0-1.5); Arterial Total Hemglobin 10.7 g/dl (12.0-18.0); Arterial pCO2 40.7 mmhg (35-45); MODE NASAL CANNULA; Site LB
[2018-01-31] MEDS: MAGNESIUM HYDROXIDE 30ML CUP PO (11:59)
[2018-01-31] MEDS: BISACODYL (EC) 5 MG TAB PO (15:37)
== END 2018-01-31 19:38 | disposition home health service (06) | DRG 656 ==
LOC: REC 09:11 → PP2 19:36
PROVIDERS: Surgery Surgical Oncology
PROC: 0TT14ZZ Resection of Left Kidney, Percutaneous Endoscopic Approach (ICD-10-PCS; principal; 2018-01-27 12:30)
PROC: 07TD4ZZ Resection of Aortic Lymphatic, Percutaneous Endoscopic Approach (ICD-10-PCS; 2018-01-27 12:30)
PROC: 0DNU4ZZ Release Omentum, Percutaneous Endoscopic Approach (ICD-10-PCS; 2018-01-27 12:30)
PROC: 0DNE4ZZ Release Large Intestine, Percutaneous Endoscopic Approach (ICD-10-PCS; 2018-01-27 12:30)
DX: C64.2 Malignant neoplasm of left kidney, except renal pelvis (principal); J96.01 Acute respiratory failure with hypoxia; C78.00 Secondary malignant neoplasm of unspecified lung; R33.9 Retention of urine, unspecified; I10 Essential (primary) hypertension; K66.0 Peritoneal adhesions (postprocedural) (postinfection); D64.9 Anemia, unspecified; E11.9 Type 2 diabetes mellitus without complications; E66.9 Obesity, unspecified; Z68.34 Body mass index [BMI] 34.0-34.9, adult
CPT/HCPCS: 36600; 80048; 82803; 82962; 83036; 83735; 84100; 85025; 88307; 94640; 94664

== ENCOUNTER 2018-05-30 19:29 | Inpatient (IN) | payer OTHER ==
[2018-05-30] MEDS ORDERED: HEPARIN 1000 UNITS/ML 10 ML INJ IV (23:45)
[2018-05-31 00:14] LABS: ADD MAN DIFF? NO
[2018-05-31 00:16] LABS: WHITE BLOOD COUNT 11.1 10^3/ul (4.8-10.8)
[2018-05-31 00:16] LABS: BASOPHILS % 0.3 % (0.0-2.0); EOSINOPHILS # 0.1 10^3/ul (0.0-0.5); EOSINOPHILS % 0.5 % (0.0-7.0); HEMATOCRIT 24.7 % (37.0-47.0); HEMOGLOBIN 7.7 g/dl (12.0-16.0); LYMPHOCYTES % 18.1 % (15.0-51.0); MEAN CORPUSCULAR HEMOGLOBIN 29.2 pg (29.0-33.0); MEAN CORPUSCULAR HGB CONC 31.2 g/dl (32.0-37.0); MEAN CORPUSCULAR VOLUME 93.6 fl (82.0-101.0); MEAN PLATELET VOLUME 9.1 fl (7.4-10.4); MONOCYTE # 1.1 10^3/ul (0.3-0.9); MONOCYTES % 9.9 % (0.0-11.0); NEUTROPHIL # 7.8 10^3/ul (1.6-7.5); NEUTROPHILS % 70.6 % (39.0-77.0); PLATELET COUNT 474 10^3/UL (140-415); RED BLOOD COUNT 2.64 10^6/ul (4.20-5.40); RED CELL DISTRIBUTION WIDTH 14.7 % (11.5-14.5)
[2018-05-31] MEDS: HEPARIN 1000 UNITS/ML 10 ML INJ IV ×2 (00:21→00:24)
[2018-05-31] MEDS: HEPARIN 25000 UNITS/D5W 250 ML (VPH) IV (00:22)
[2018-05-31 00:44] LABS: INR 1.03; PROTIME 13.6 Sec (11.9-14.9); PT RATIO 1.1
[2018-05-31 00:45] LABS: PARTIAL THROMBOPLASTIN TIME 37.3 Sec (23.0-35.0)
[2018-05-31 00:47] LABS: ANION GAP 13 (5-13); BLOOD UREA NITROGEN 24 mg/dl (7-20); CALCIUM 9.2 mg/dl (8.4-10.2); CARBON DIOXIDE 20 mmol/L (21-31); CHLORIDE 99 mmol/L (97-110); CREATININE 2.24 mg/dl (0.44-1.00); Estimated GFR 22 mL/min (>60); GLUCOSE 99 mg/dl (70-220); POTASSIUM 5.1 mmol/L (3.5-5.1); SODIUM 132 mmol/L (135-144)
[2018-05-31] MEDS ORDERED: BISACODYL (EC) 5 MG TAB PO (02:00)
[2018-05-31] MEDS ORDERED: DOCUSATE SODIUM 100 MG CAP PO (02:00)
[2018-05-31] MEDS ORDERED: NACL 0.9% 3 ML SYG IV (02:00)
[2018-05-31] MEDS ORDERED: ONDANSETRON 4 MG INJ IV (02:00)
[2018-05-31] MEDS ORDERED: HEPARIN 1000 UNITS/ML 10 ML INJ IV (02:00)
[2018-05-31] MEDS: SOD CHLORIDE 0.9% 1,000 ML IV ×2 (03:00→12:09)
[2018-05-31] MEDS ORDERED: METOCLOPRAMIDE 10 MG TAB PO (03:30)
[2018-05-31] MEDS ORDERED: ONDANSETRON 4 MG TAB PO (03:30)
[2018-05-31 06:15] LABS: ADD MAN DIFF? NO
[2018-05-31 06:24] LABS: WHITE BLOOD COUNT 10.2 10^3/ul (4.8-10.8)
[2018-05-31 06:24] LABS: BASOPHILS % 0.2 % (0.0-2.0); EOSINOPHILS # 0.1 10^3/ul (0.0-0.5); EOSINOPHILS % 0.6 % (0.0-7.0); HEMATOCRIT 23.4 % (37.0-47.0); HEMOGLOBIN 7.3 g/dl (12.0-16.0); LYMPHOCYTES # 2.2 10^3/ul (0.8-2.9); LYMPHOCYTES % 21.1 % (15.0-51.0); MEAN CORPUSCULAR HEMOGLOBIN 29.3 pg (29.0-33.0); MEAN CORPUSCULAR HGB CONC 31.2 g/dl (32.0-37.0); MEAN PLATELET VOLUME 10.5 fl (7.4-10.4); MONOCYTE # 1.2 10^3/ul (0.3-0.9); MONOCYTES % 11.2 % (0.0-11.0); NEUTROPHIL # 6.8 10^3/ul (1.6-7.5); NEUTROPHILS % 66.3 % (39.0-77.0); PLATELET COUNT 340 10^3/UL (140-415); RED BLOOD COUNT 2.49 10^6/ul (4.20-5.40); RED CELL DISTRIBUTION WIDTH 14.7 % (11.5-14.5)
[2018-05-31] MEDS: PANTOPRAZOLE 40 MG INJ IV (06:28)
[2018-05-31 06:39] LABS: INR 1.03; PROTIME 13.6 Sec (11.9-14.9); PT RATIO 1.1
[2018-05-31 06:41] LABS: PARTIAL THROMBOPLASTIN TIME 65.9 Sec (23.0-35.0)
[2018-05-31 06:47] LABS: ALANINE AMINOTRANSFERASE 15 IU/L (13-69); ALBUMIN 2.9 g/dl (3.3-4.9); ALKALINE PHOSPHATASE 175 IU/L (42-121); ANION GAP 10 (5-13); ASPARTATE AMINO TRANSFERASE 14 IU/L (15-46); BILIRUBIN,INDIRECT 0.1 mg/dl (0-1.1); BILIRUBIN,TOTAL 0.1 mg/dl (0.2-1.3); BLOOD UREA NITROGEN 22 mg/dl (7-20); CALCIUM 8.8 mg/dl (8.4-10.2); CARBON DIOXIDE 22 mmol/L (21-31); CHLORIDE 102 mmol/L (97-110); CREATININE 2.14 mg/dl (0.44-1.00); Estimated GFR 23 mL/min (>60); GLUCOSE 90 mg/dl (70-220); SODIUM 134 mmol/L (135-144); TOTAL PROTEIN 6.5 g/dl (6.1-8.1)
[2018-05-31] MEDS: POLYETHYLENE GLYCOL 17 GM PACKET PO (08:07)
[2018-05-31] MEDS: predniSONE 5 MG TAB PO (08:07)
[2018-05-31] MEDS: ALLOPURINOL 300 MG TAB PO (08:07)
[2018-05-31] MEDS: HYDROXYCHLOROQUINE 200 MG TAB PO ×2 (08:07→20:49)
[2018-05-31] MEDS: AMLODIPINE 10 MG TAB PO (08:07)
[2018-05-31] MEDS: morphine (ER) 15 MG TAB PO ×2 (08:07→20:50)
[2018-05-31] MEDS: INSULIN ASPART [NOVOLOG] 3 ML PEN SC ×3 (08:12→16:59)
[2018-05-31] MEDS ORDERED: PAZOPANIB PO (09:00)
[2018-05-31] MEDS ORDERED: NON-FORMULARY/PATIENT OWN MED (Omeprazole* 40 MG) PO (09:00)
[2018-05-31] MEDS ORDERED: POLYETHYLENE GLYCOL 17 GM PO (09:00)
[2018-05-31] MEDS: HEPARIN 25000 UNITS/250 ML 250 ML IV ×2 (10:52→18:32)
[2018-05-31 11:34] LABS: ADD UMIC YES; UR ASCORBIC ACID NEGATIVE (NEGATIVE); UR BACTERIA FEW /HPF (NONE SEEN); UR BILIRUBIN (Dip) NEGATIVE (NEGATIVE); UR BLOOD (Dip) NEGATIVE (NEGATIVE); UR CLARITY CLEAR (CLEAR); UR COLOR STRAW (YELLOW); UR GLUCOSE (Dip) NEGATIVE (NEGATIVE); UR KETONES (Dip) NEGATIVE (NEGATIVE); UR LEUKOCYTE ESTERASE (Dip) TRACE Leu/ul (NEGATIVE); UR NITRITE (Dip) NEGATIVE (NEGATIVE); UR RBC 0 /HPF (0-5); UR SPECIFIC GRAVITY (Dip) 1.005 (1.003-1.030); UR TOTAL PROTEIN (Dip) NEGATIVE (NEGATIVE); UR UROBILINOGEN (Dip) NEGATIVE (NEGATIVE); UR WBC 5 /HPF (0-5)
[2018-05-31 11:36] LABS: ADD MAN DIFF? NO
[2018-05-31 11:37] LABS: WHITE BLOOD COUNT 9.3 10^3/ul (4.8-10.8)
[2018-05-31 11:37] LABS: BASOPHILS % 0.2 % (0.0-2.0); EOSINOPHILS % 0.4 % (0.0-7.0); HEMATOCRIT 24.2 % (37.0-47.0); HEMOGLOBIN 7.6 g/dl (12.0-16.0); LYMPHOCYTES # 1.2 10^3/ul (0.8-2.9); LYMPHOCYTES % 13.2 % (15.0-51.0); MEAN CORPUSCULAR HEMOGLOBIN 29.2 pg (29.0-33.0); MEAN CORPUSCULAR HGB CONC 31.4 g/dl (32.0-37.0); MEAN CORPUSCULAR VOLUME 93.1 fl (82.0-101.0); MEAN PLATELET VOLUME 8.9 fl (7.4-10.4); MONOCYTES % 11.2 % (0.0-11.0); NEUTROPHIL # 6.9 10^3/ul (1.6-7.5); NEUTROPHILS % 74.5 % (39.0-77.0); PLATELET COUNT 471 10^3/UL (140-415); RED CELL DISTRIBUTION WIDTH 14.8 % (11.5-14.5)
[2018-05-31 11:47] LABS: CREATININE,URINE RANDOM 20.85 mg/dl (20-320)
[2018-05-31 11:47] LABS: SODIUM,URINE RANDOM 57 mmol/L (30-90)
[2018-05-31] MEDS: ACETAMINOPHEN 325 MG TAB PO (11:55)
[2018-05-31 12:27] LABS: OCCULT BLOOD STOOL NEGATIVE (NEGATIVE)
[2018-05-31 17:56] LABS: ADD MAN DIFF? NO
[2018-05-31 17:57] LABS: BASOPHILS % 0.2 % (0.0-2.0); EOSINOPHILS % 0.2 % (0.0-7.0); HEMATOCRIT 24.8 % (37.0-47.0); HEMOGLOBIN 7.6 g/dl (12.0-16.0); LYMPHOCYTES # 1.4 10^3/ul (0.8-2.9); LYMPHOCYTES % 14.4 % (15.0-51.0); MEAN CORPUSCULAR HEMOGLOBIN 28.8 pg (29.0-33.0); MEAN CORPUSCULAR HGB CONC 30.6 g/dl (32.0-37.0); MEAN CORPUSCULAR VOLUME 93.9 fl (82.0-101.0); MEAN PLATELET VOLUME 10.6 fl (7.4-10.4); MONOCYTE # 0.8 10^3/ul (0.3-0.9); MONOCYTES % 8.1 % (0.0-11.0); NEUTROPHIL # 7.3 10^3/ul (1.6-7.5); NEUTROPHILS % 76.8 % (39.0-77.0); PLATELET COUNT 280 10^3/UL (140-415); RED BLOOD COUNT 2.64 10^6/ul (4.20-5.40); RED CELL DISTRIBUTION WIDTH 14.8 % (11.5-14.5)
[2018-05-31 17:57] LABS: WHITE BLOOD COUNT 9.5 10^3/ul (4.8-10.8)
[2018-05-31 18:17] LABS: PARTIAL THROMBOPLASTIN TIME 73.2 Sec (23.0-35.0)
[2018-05-31] MEDS: DOCUSATE SODIUM 250 MG CAP PO (20:49)
[2018-05-31] MEDS: GABAPENTIN 300 MG CAP PO (20:49)
[2018-05-31] MEDS: ATORVASTATIN 10 MG TAB PO (20:49)
[2018-05-31] MEDS ORDERED: NON-FORMULARY/PATIENT OWN MED (Simvastatin* (Zocor*) 20 MG) PO (21:00)
[2018-05-31 23:14] LABS: ADD MAN DIFF? NO
[2018-05-31 23:15] LABS: BASOPHILS % 0.2 % (0.0-2.0); EOSINOPHILS % 0.2 % (0.0-7.0); HEMATOCRIT 23.8 % (37.0-47.0); HEMOGLOBIN 7.3 g/dl (12.0-16.0); LYMPHOCYTES # 1.8 10^3/ul (0.8-2.9); LYMPHOCYTES % 18.1 % (15.0-51.0); MEAN CORPUSCULAR HEMOGLOBIN 28.7 pg (29.0-33.0); MEAN CORPUSCULAR HGB CONC 30.7 g/dl (32.0-37.0); MEAN CORPUSCULAR VOLUME 93.7 fl (82.0-101.0); MEAN PLATELET VOLUME 9.1 fl (7.4-10.4); MONOCYTE # 0.9 10^3/ul (0.3-0.9); MONOCYTES % 9.4 % (0.0-11.0); NEUTROPHILS % 71.7 % (39.0-77.0); PLATELET COUNT 495 10^3/UL (140-415); RED BLOOD COUNT 2.54 10^6/ul (4.20-5.40); RED CELL DISTRIBUTION WIDTH 14.7 % (11.5-14.5)
[2018-05-31 23:15] LABS: WHITE BLOOD COUNT 9.8 10^3/ul (4.8-10.8)
[2018-06-01] MEDS: SOD CHLORIDE 0.9% 1,000 ML IV ×3 (00:38→20:04)
[2018-06-01 05:28] LABS: ADD MAN DIFF? NO
[2018-06-01 05:30] LABS: WHITE BLOOD COUNT 10.3 10^3/ul (4.8-10.8)
[2018-06-01 05:30] LABS: BASOPHILS % 0.3 % (0.0-2.0); EOSINOPHILS # 0.1 10^3/ul (0.0-0.5); EOSINOPHILS % 0.6 % (0.0-7.0); HEMATOCRIT 23.4 % (37.0-47.0); HEMOGLOBIN 7.3 g/dl (12.0-16.0); LYMPHOCYTES # 2.5 10^3/ul (0.8-2.9); LYMPHOCYTES % 24.2 % (15.0-51.0); MEAN CORPUSCULAR HEMOGLOBIN 29.3 pg (29.0-33.0); MEAN CORPUSCULAR HGB CONC 31.2 g/dl (32.0-37.0); MEAN PLATELET VOLUME 8.8 fl (7.4-10.4); MONOCYTE # 1.3 10^3/ul (0.3-0.9); MONOCYTES % 12.4 % (0.0-11.0); NEUTROPHIL # 6.4 10^3/ul (1.6-7.5); NEUTROPHILS % 61.8 % (39.0-77.0); PLATELET COUNT 461 10^3/UL (140-415); RED BLOOD COUNT 2.49 10^6/ul (4.20-5.40); RED CELL DISTRIBUTION WIDTH 14.8 % (11.5-14.5)
[2018-06-01] MEDS: PANTOPRAZOLE 40 MG INJ IV (05:47)
[2018-06-01 06:06] LABS: ANION GAP 9 (5-13); BLOOD UREA NITROGEN 19 mg/dl (7-20); CARBON DIOXIDE 22 mmol/L (21-31); CHLORIDE 106 mmol/L (97-110); CREATININE 1.87 mg/dl (0.44-1.00); Estimated GFR 27 mL/min (>60); GLUCOSE 89 mg/dl (70-220); MAGNESIUM 1.5 mg/dl (1.7-2.5); PHOSPHORUS 3.2 mg/dl (2.5-4.9); POTASSIUM 4.6 mmol/L (3.5-5.1); SODIUM 137 mmol/L (135-144)
[2018-06-01] MEDS: morphine (ER) 15 MG TAB PO ×2 (08:05→21:05)
[2018-06-01] MEDS: POLYETHYLENE GLYCOL 17 GM PACKET PO (08:05)
[2018-06-01] MEDS: HYDROXYCHLOROQUINE 200 MG TAB PO ×2 (08:06→21:04)
[2018-06-01] MEDS: ALLOPURINOL 300 MG TAB PO (08:06)
[2018-06-01] MEDS: AMLODIPINE 10 MG TAB PO (08:06)
[2018-06-01] MEDS: predniSONE 5 MG TAB PO (08:06)
[2018-06-01] MEDS: INSULIN ASPART [NOVOLOG] 3 ML PEN SC ×3 (08:37→17:10)
[2018-06-01] MEDS ORDERED: ENOXAPARIN 100 MG/ML SYG SC (10:30)
[2018-06-01 10:51] LABS: ADD MAN DIFF? NO
[2018-06-01 10:53] LABS: WHITE BLOOD COUNT 10.5 10^3/ul (4.8-10.8)
[2018-06-01 10:53] LABS: BASOPHILS % 0.3 % (0.0-2.0); EOSINOPHILS # 0.1 10^3/ul (0.0-0.5); EOSINOPHILS % 0.5 % (0.0-7.0); HEMATOCRIT 23.7 % (37.0-47.0); HEMOGLOBIN 7.3 g/dl (12.0-16.0); LYMPHOCYTES # 1.9 10^3/ul (0.8-2.9); LYMPHOCYTES % 18.4 % (15.0-51.0); MEAN CORPUSCULAR HEMOGLOBIN 29.1 pg (29.0-33.0); MEAN CORPUSCULAR HGB CONC 30.8 g/dl (32.0-37.0); MEAN CORPUSCULAR VOLUME 94.4 fl (82.0-101.0); MEAN PLATELET VOLUME 9.5 fl (7.4-10.4); MONOCYTE # 1.5 10^3/ul (0.3-0.9); NEUTROPHILS % 66.5 % (39.0-77.0); PLATELET COUNT 424 10^3/UL (140-415); RED BLOOD COUNT 2.51 10^6/ul (4.20-5.40); RED CELL DISTRIBUTION WIDTH 15.1 % (11.5-14.5)
[2018-06-01] MEDS: MAGNESIUM SULFATE 2 GM/50 ML 50 ML IVPB (11:28)
[2018-06-01] MEDS: HEPARIN 25000 UNITS/250 ML 250 ML IV (11:32)
[2018-06-01] MEDS: ACETAMINOPHEN 325 MG TAB PO (17:12)
[2018-06-01] MEDS: [UNRECOGNIZED DRUG - REMARK] XX (17:30)
[2018-06-01 18:41] LABS: ADD MAN DIFF? NO
[2018-06-01 18:43] LABS: BASOPHILS % 0.2 % (0.0-2.0); EOSINOPHILS % 0.2 % (0.0-7.0); HEMOGLOBIN 7.6 g/dl (12.0-16.0); LYMPHOCYTES # 1.4 10^3/ul (0.8-2.9); LYMPHOCYTES % 13.6 % (15.0-51.0); MEAN CORPUSCULAR HEMOGLOBIN 29.6 pg (29.0-33.0); MEAN CORPUSCULAR HGB CONC 31.7 g/dl (32.0-37.0); MEAN CORPUSCULAR VOLUME 93.4 fl (82.0-101.0); MEAN PLATELET VOLUME 9.8 fl (7.4-10.4); MONOCYTE # 0.8 10^3/ul (0.3-0.9); MONOCYTES % 7.5 % (0.0-11.0); NEUTROPHIL # 7.9 10^3/ul (1.6-7.5); NEUTROPHILS % 77.4 % (39.0-77.0); PLATELET COUNT 411 10^3/UL (140-415); RED BLOOD COUNT 2.57 10^6/ul (4.20-5.40)
[2018-06-01 18:43] LABS: WHITE BLOOD COUNT 10.2 10^3/ul (4.8-10.8)
[2018-06-01] MEDS: ATORVASTATIN 10 MG TAB PO (21:04)
[2018-06-01] MEDS: DOCUSATE SODIUM 250 MG CAP PO (21:04)
[2018-06-01] MEDS: GABAPENTIN 300 MG CAP PO (21:05)
[2018-06-01 23:22] LABS: ADD MAN DIFF? NO
[2018-06-01 23:23] LABS: BASOPHILS % 0.4 % (0.0-2.0); EOSINOPHILS % 0.3 % (0.0-7.0); HEMATOCRIT 24.3 % (37.0-47.0); HEMOGLOBIN 7.7 g/dl (12.0-16.0); LYMPHOCYTES # 2.3 10^3/ul (0.8-2.9); LYMPHOCYTES % 20.3 % (15.0-51.0); MEAN CORPUSCULAR HEMOGLOBIN 29.8 pg (29.0-33.0); MEAN CORPUSCULAR HGB CONC 31.7 g/dl (32.0-37.0); MEAN CORPUSCULAR VOLUME 94.2 fl (82.0-101.0); MEAN PLATELET VOLUME 8.7 fl (7.4-10.4); MONOCYTE # 1.2 10^3/ul (0.3-0.9); MONOCYTES % 10.2 % (0.0-11.0); NEUTROPHIL # 7.8 10^3/ul (1.6-7.5); NEUTROPHILS % 68.3 % (39.0-77.0); PLATELET COUNT 488 10^3/UL (140-415); RED BLOOD COUNT 2.58 10^6/ul (4.20-5.40); RED CELL DISTRIBUTION WIDTH 15.1 % (11.5-14.5)
[2018-06-01 23:23] LABS: WHITE BLOOD COUNT 11.4 10^3/ul (4.8-10.8)
[2018-06-02] MEDS: [UNRECOGNIZED DRUG - REMARK] XX ×3 (00:28→17:23)
[2018-06-02] MEDS: PANTOPRAZOLE 40 MG INJ IV (05:25)
[2018-06-02] MEDS: SOD CHLORIDE 0.9% 1,000 ML IV (05:26)
[2018-06-02 05:33] LABS: ADD MAN DIFF? NO
[2018-06-02 05:34] LABS: WHITE BLOOD COUNT 11.3 10^3/ul (4.8-10.8)
[2018-06-02 05:34] LABS: BASOPHILS % 0.4 % (0.0-2.0); EOSINOPHILS # 0.1 10^3/ul (0.0-0.5); EOSINOPHILS % 0.6 % (0.0-7.0); HEMATOCRIT 25.5 % (37.0-47.0); HEMOGLOBIN 7.8 g/dl (12.0-16.0); LYMPHOCYTES # 2.4 10^3/ul (0.8-2.9); LYMPHOCYTES % 21.4 % (15.0-51.0); MEAN CORPUSCULAR HEMOGLOBIN 28.7 pg (29.0-33.0); MEAN CORPUSCULAR HGB CONC 30.6 g/dl (32.0-37.0); MEAN CORPUSCULAR VOLUME 93.8 fl (82.0-101.0); MEAN PLATELET VOLUME 10.5 fl (7.4-10.4); MONOCYTE # 1.2 10^3/ul (0.3-0.9); MONOCYTES % 10.3 % (0.0-11.0); NEUTROPHIL # 7.6 10^3/ul (1.6-7.5); NEUTROPHILS % 66.9 % (39.0-77.0); PLATELET COUNT 275 10^3/UL (140-415); RED BLOOD COUNT 2.72 10^6/ul (4.20-5.40); RED CELL DISTRIBUTION WIDTH 15.1 % (11.5-14.5)
[2018-06-02 05:56] LABS: PARTIAL THROMBOPLASTIN TIME 66.6 Sec (23.0-35.0)
[2018-06-02 06:02] LABS: ANION GAP 12 (5-13); BLOOD UREA NITROGEN 17 mg/dl (7-20); CALCIUM 9.6 mg/dl (8.4-10.2); CARBON DIOXIDE 17 mmol/L (21-31); CHLORIDE 106 mmol/L (97-110); Estimated GFR 31 mL/min (>60); GLUCOSE 90 mg/dl (70-220); PHOSPHORUS 3.3 mg/dl (2.5-4.9); POTASSIUM 4.5 mmol/L (3.5-5.1); SODIUM 135 mmol/L (135-144)
[2018-06-02] MEDS: INSULIN ASPART [NOVOLOG] 3 ML PEN SC ×3 (07:49→17:22)
[2018-06-02] MEDS: AMLODIPINE 10 MG TAB PO (08:18)
[2018-06-02] MEDS: HYDROXYCHLOROQUINE 200 MG TAB PO ×2 (08:19→20:18)
[2018-06-02] MEDS: morphine (ER) 15 MG TAB PO ×2 (08:19→20:16)
[2018-06-02] MEDS: predniSONE 5 MG TAB PO (08:19)
[2018-06-02] MEDS: ALLOPURINOL 300 MG TAB PO (08:19)
[2018-06-02] MEDS: POLYETHYLENE GLYCOL 17 GM PACKET PO (08:19)
[2018-06-02] MEDS: HEPARIN 25000 UNITS/250 ML 250 ML IV ×2 (10:40→13:28)
[2018-06-02] MEDS: morphine 2 MG INJ IV (10:50)
[2018-06-02 13:21] LABS: ADD MAN DIFF? NO
[2018-06-02 13:24] LABS: BASOPHILS % 0.3 % (0.0-2.0); EOSINOPHILS % 0.3 % (0.0-7.0); HEMATOCRIT 25.1 % (37.0-47.0); HEMOGLOBIN 7.8 g/dl (12.0-16.0); LYMPHOCYTES # 1.1 10^3/ul (0.8-2.9); LYMPHOCYTES % 10.7 % (15.0-51.0); MEAN CORPUSCULAR HEMOGLOBIN 29.4 pg (29.0-33.0); MEAN CORPUSCULAR HGB CONC 31.1 g/dl (32.0-37.0); MEAN CORPUSCULAR VOLUME 94.7 fl (82.0-101.0); MEAN PLATELET VOLUME 9.1 fl (7.4-10.4); MONOCYTE # 0.9 10^3/ul (0.3-0.9); MONOCYTES % 8.7 % (0.0-11.0); NEUTROPHIL # 8.2 10^3/ul (1.6-7.5); NEUTROPHILS % 79.5 % (39.0-77.0); PLATELET COUNT 447 10^3/UL (140-415); RED BLOOD COUNT 2.65 10^6/ul (4.20-5.40); RED CELL DISTRIBUTION WIDTH 15.1 % (11.5-14.5)
[2018-06-02 13:24] LABS: WHITE BLOOD COUNT 10.3 10^3/ul (4.8-10.8)
[2018-06-02 13:44] LABS: PARTIAL THROMBOPLASTIN TIME 34.9 Sec (23.0-35.0)
[2018-06-02] MEDS: ACETAMINOPHEN 325 MG TAB PO (14:58)
[2018-06-02 16:06] LABS: CREATININE, RANDOM URINE 23 mg/dL (20-275); MICROALBUMIN 1.2 mg/dL; MICROALBUMIN/CREATININE RATIO 52 (<30)
[2018-06-02] MEDS: ATORVASTATIN 10 MG TAB PO (20:15)
[2018-06-02] MEDS: DOCUSATE SODIUM 250 MG CAP PO (20:17)
[2018-06-02] MEDS: APIXABAN 5 MG TABLET PO (20:17)
[2018-06-02] MEDS: GABAPENTIN 300 MG CAP PO (20:18)
[2018-06-03] MEDS: [UNRECOGNIZED DRUG - REMARK] XX ×3 (01:30→16:41)
[2018-06-03] MEDS: ACETAMINOPHEN 325 MG TAB PO ×2 (03:58→11:10)
[2018-06-03 06:55] LABS: ANION GAP 17 (5-13); BLOOD UREA NITROGEN 17 mg/dl (7-20); CALCIUM 9.3 mg/dl (8.4-10.2); CARBON DIOXIDE 17 mmol/L (21-31); CHLORIDE 103 mmol/L (97-110); CREATININE 1.59 mg/dl (0.44-1.00); Estimated GFR 33 mL/min (>60); GLUCOSE 78 mg/dl (70-220); MAGNESIUM 1.6 mg/dl (1.7-2.5); PHOSPHORUS 3.4 mg/dl (2.5-4.9); POTASSIUM 4.7 mmol/L (3.5-5.1); SODIUM 137 mmol/L (135-144)
[2018-06-03] MEDS: PANTOPRAZOLE (EC) 40 MG TAB PO (07:03)
[2018-06-03] MEDS: HYDROXYCHLOROQUINE 200 MG TAB PO (08:42)
[2018-06-03] MEDS: POLYETHYLENE GLYCOL 17 GM PACKET PO (08:43)
[2018-06-03] MEDS: ALLOPURINOL 300 MG TAB PO (08:43)
[2018-06-03] MEDS: morphine (ER) 15 MG TAB PO (08:43)
[2018-06-03] MEDS: APIXABAN 5 MG TABLET PO (08:43)
[2018-06-03] MEDS: predniSONE 5 MG TAB PO (08:43)
[2018-06-03] MEDS: AMLODIPINE 10 MG TAB PO (08:44)
[2018-06-03] MEDS: INSULIN ASPART [NOVOLOG] 3 ML PEN SC ×3 (08:55→17:30)
[2018-06-03] MEDS: MAGNESIUM SULFATE 2 GM/50 ML 50 ML IVPB (13:56)
== END 2018-06-03 18:03 | disposition home or self-care (01) | DRG 253 ==
LOC: E/R 19:29 → 2NE 05-31 01:11 → 6WM 05-31 02:43
PROC: 06H03DZ Insertion of Intraluminal Device into Inferior Vena Cava, Percutaneous Approach (ICD-10-PCS; principal; 2018-06-02 10:50)
DX: I82.441 Acute embolism and thrombosis of right tibial vein (principal); N17.9 Acute kidney failure, unspecified; C79.51 Secondary malignant neoplasm of bone; C78.00 Secondary malignant neoplasm of unspecified lung; C64.9 Malignant neoplasm of unspecified kidney, except renal pelvis; E87.1 Hypo-osmolality and hyponatremia; C78.89 Secondary malignant neoplasm of other digestive organs; E87.2 Acidosis; I12.9 Hypertensive chronic kidney disease with stage 1 through stage 4 chronic kidney disease, or unspecified chronic kidney disease; N18.9 Chronic kidney disease, unspecified; D63.1 Anemia in chronic kidney disease; E11.22 Type 2 diabetes mellitus with diabetic chronic kidney disease; M32.9 Systemic lupus erythematosus, unspecified; E83.42 Hypomagnesemia; E86.9 Volume depletion, unspecified; G89.3 Neoplasm related pain (acute) (chronic)
CPT/HCPCS: 36415; 72147; 72149; 75940; 76775; 80048; 80053; 81001; 81003; 82043; 82270; 82962; 83735; 84100; 84155; 84300; 85025; 85610; 85730; 86850; 86900; 86901; 93970; 96374; 96375; 99285-25

== ENCOUNTER 2018-07-12 16:19 | Emergency (ER) | payer OTHER ==
[2018-07-12 17:03] LABS: ADD MAN DIFF? NO
[2018-07-12 17:10] LABS: ABNORMAL IP MESSAGE 1; BASOPHILS % 0.3 % (0.0-2.0); EOSINOPHILS % 0.1 % (0.0-7.0); HEMATOCRIT 27.4 % (37.0-47.0); HEMOGLOBIN 8.6 g/dl (12.0-16.0); LYMPHOCYTES # 0.6 10^3/ul (0.8-2.9); LYMPHOCYTES % 4.8 % (15.0-51.0); MEAN CORPUSCULAR HEMOGLOBIN 28.6 pg (29.0-33.0); MEAN CORPUSCULAR HGB CONC 31.4 g/dl (32.0-37.0); MEAN PLATELET VOLUME 9.7 fl (7.4-10.4); MONOCYTES % 8.4 % (0.0-11.0); NEUTROPHILS % 85.5 % (39.0-77.0); NUCLEATED RED BLOOD CELLS% 0.2 /100WBC (0.0-0.0); PLATELET COUNT 354 10^3/UL (140-415); RED BLOOD COUNT 3.01 10^6/ul (4.20-5.40); RED CELL DISTRIBUTION WIDTH 15.1 % (11.5-14.5)
[2018-07-12 17:10] LABS: WHITE BLOOD COUNT 11.7 10^3/ul (4.8-10.8)
[2018-07-12 17:13] LABS: POSITIVE DIFF @See below
[2018-07-12] MEDS ORDERED: ACETAMINOPHEN 325 MG TAB PO (17:30)
[2018-07-12 17:31] LABS: INR 1.15; PROTIME 14.9 Sec (11.9-14.9); PT RATIO 1.2
[2018-07-12 17:32] LABS: PARTIAL THROMBOPLASTIN TIME 38.5 Sec (23.0-35.0)
[2018-07-12 17:33] LABS: ALANINE AMINOTRANSFERASE 17 IU/L (13-69); ALBUMIN 3.5 g/dl (3.3-4.9); ALBUMIN/GLOBULIN RATIO 0.71; ALKALINE PHOSPHATASE 255 IU/L (42-121); ANION GAP 13 (5-13); ASPARTATE AMINO TRANSFERASE 41 IU/L (15-46); BILIRUBIN,INDIRECT 0.2 mg/dl (0-1.1); BILIRUBIN,TOTAL 0.2 mg/dl (0.2-1.3); BLOOD UREA NITROGEN 21 mg/dl (7-20); CARBON DIOXIDE 20 mmol/L (21-31); CHLORIDE 98 mmol/L (97-110); CREATININE 1.87 mg/dl (0.44-1.00); Estimated GFR 27 mL/min (>60); GLUCOSE 108 mg/dl (70-220); SODIUM 131 mmol/L (135-144); TOTAL PROTEIN 8.4 g/dl (6.1-8.1)
[2018-07-12] MEDS: HYDROCODONE/APAP (5/325) TAB PO (17:37)
[2018-07-12 17:44] LABS: TROPONIN-I < 0.012 ng/ml (0.000-0.120)
== END 2018-07-12 19:00 | disposition home or self-care (01) ==
LOC: E/R 16:19
DX: D64.9 Anemia, unspecified (principal); I10 Essential (primary) hypertension; E11.9 Type 2 diabetes mellitus without complications; Z85.528 Personal history of other malignant neoplasm of kidney; Z79.4 Long term (current) use of insulin
CPT/HCPCS: 36415; 70450; 80053; 84484; 85025; 85610; 85730; 86850; 86900; 86901; 93005; 99285-25

== ENCOUNTER 2018-07-27 16:16 | Emergency (ER) | payer OTHER ==
[2018-07-27 16:59] LABS: ADD MAN DIFF? NO
[2018-07-27 17:01] LABS: WHITE BLOOD COUNT 12.2 10^3/ul (4.8-10.8)
[2018-07-27 17:01] LABS: BASOPHIL # 0.1 10^3/ul (0.0-0.1); BASOPHILS % 0.4 % (0.0-2.0); EOSINOPHILS % 0.1 % (0.0-7.0); HEMATOCRIT 35.6 % (37.0-47.0); HEMOGLOBIN 11.3 g/dl (12.0-16.0); LYMPHOCYTES # 0.6 10^3/ul (0.8-2.9); LYMPHOCYTES % 5.2 % (15.0-51.0); MEAN CORPUSCULAR HEMOGLOBIN 28.3 pg (29.0-33.0); MEAN CORPUSCULAR HGB CONC 31.7 g/dl (32.0-37.0); MEAN CORPUSCULAR VOLUME 89.2 fl (82.0-101.0); MEAN PLATELET VOLUME 10.2 fl (7.4-10.4); MONOCYTE # 1.2 10^3/ul (0.3-0.9); MONOCYTES % 9.6 % (0.0-11.0); NEUTROPHIL # 10.3 10^3/ul (1.6-7.5); PLATELET COUNT 267 10^3/UL (140-415); RED BLOOD COUNT 3.99 10^6/ul (4.20-5.40); RED CELL DISTRIBUTION WIDTH 15.9 % (11.5-14.5)
[2018-07-27 17:16] LABS: PROTIME 14.4 Sec (11.9-14.9); PT RATIO 1.1
[2018-07-27] MEDS: SOD CHLORIDE 0.9% 500 ML IV (17:16)
[2018-07-27 17:17] LABS: PARTIAL THROMBOPLASTIN TIME 37.2 Sec (23.0-35.0)
[2018-07-27 17:22] LABS: ALANINE AMINOTRANSFERASE 10 IU/L (13-69); ALBUMIN 3.5 g/dl (3.3-4.9); ALBUMIN/GLOBULIN RATIO 0.66; ALKALINE PHOSPHATASE 260 IU/L (42-121); ANION GAP 16 (5-13); ASPARTATE AMINO TRANSFERASE 42 IU/L (15-46); BILIRUBIN,INDIRECT 0.1 mg/dl (0-1.1); BILIRUBIN,TOTAL 0.1 mg/dl (0.2-1.3); BLOOD UREA NITROGEN 30 mg/dl (7-20); CALCIUM 10.6 mg/dl (8.4-10.2); CARBON DIOXIDE 16 mmol/L (21-31); CHLORIDE 105 mmol/L (97-110); CREATININE 2.07 mg/dl (0.44-1.00); Estimated GFR 24 mL/min (>60); GLUCOSE 115 mg/dl (70-220); POTASSIUM 4.4 mmol/L (3.5-5.1); SODIUM 137 mmol/L (135-144); TOTAL PROTEIN 8.8 g/dl (6.1-8.1)
[2018-07-27 17:32] LABS: TROPONIN-I < 0.012 ng/ml (0.000-0.120)
[2018-07-27] MEDS: ONDANSETRON 4 MG INJ IV (17:46)
== END 2018-07-27 19:08 | disposition home or self-care (01) ==
LOC: E/R 16:16
DX: D64.9 Anemia, unspecified (principal); R40.2252 Coma scale, best verbal response, oriented, at arrival to emergency department; R40.2362 Coma scale, best motor response, obeys commands, at arrival to emergency department; R40.2142 Coma scale, eyes open, spontaneous, at arrival to emergency department; E11.9 Type 2 diabetes mellitus without complications; I10 Essential (primary) hypertension; Z79.4 Long term (current) use of insulin; Z85.528 Personal history of other malignant neoplasm of kidney
CPT/HCPCS: 36415; 80053; 84484; 85025; 85610; 85730; 93005; 96374; 99284-25

== ENCOUNTER 2018-08-06 09:24 | Observation (INO) | payer OTHER ==
[2018-08-06 09:57] LABS: ADD MAN DIFF? NO
[2018-08-06] MEDS: SOD CHLORIDE 0.9% 1,000 ML IV ×2 (09:58→17:02)
[2018-08-06 09:59] LABS: BASOPHILS % 0.3 % (0.0-2.0); EOSINOPHILS % 0.4 % (0.0-7.0); HEMOGLOBIN 10.7 g/dl (12.0-16.0); LYMPHOCYTES # 0.7 10^3/ul (0.8-2.9); LYMPHOCYTES % 6.6 % (15.0-51.0); MEAN CORPUSCULAR HEMOGLOBIN 27.4 pg (29.0-33.0); MEAN CORPUSCULAR HGB CONC 30.6 g/dl (32.0-37.0); MEAN CORPUSCULAR VOLUME 89.5 fl (82.0-101.0); MEAN PLATELET VOLUME 9.9 fl (7.4-10.4); MONOCYTE # 0.7 10^3/ul (0.3-0.9); MONOCYTES % 6.8 % (0.0-11.0); NEUTROPHIL # 8.6 10^3/ul (1.6-7.5); NEUTROPHILS % 85.2 % (39.0-77.0); PLATELET COUNT 308 10^3/UL (140-415); RED BLOOD COUNT 3.91 10^6/ul (4.20-5.40); RED CELL DISTRIBUTION WIDTH 15.4 % (11.5-14.5)
[2018-08-06 09:59] LABS: WHITE BLOOD COUNT 10.1 10^3/ul (4.8-10.8)
[2018-08-06 11:04] LABS: ANION GAP 11 (5-13); BLOOD UREA NITROGEN 25 mg/dl (7-20); CALCIUM 11.7 mg/dl (8.4-10.2); CARBON DIOXIDE 22 mmol/L (21-31); CHLORIDE 102 mmol/L (97-110); CREATININE 1.69 mg/dl (0.44-1.00); Estimated GFR 31 mL/min (>60); GLUCOSE 102 mg/dl (70-220); SODIUM 135 mmol/L (135-144)
[2018-08-06 11:16] LABS: TROPONIN-I < 0.012 ng/ml (0.000-0.120)
[2018-08-06] MEDS ORDERED: ACETAMINOPHEN 325 MG TAB PO (12:00)
[2018-08-06] MEDS ORDERED: ONDANSETRON 4 MG INJ IV (12:00)
[2018-08-06] MEDS ORDERED: NACL 0.9% 3 ML SYG IV ×2 (12:30→14:30)
[2018-08-06] MEDS ORDERED: METOCLOPRAMIDE 10 MG TAB PO (14:00)
[2018-08-06] MEDS ORDERED: HYDROCODONE/APAP (5/325) TAB PO (14:30)
[2018-08-06 16:49] LABS: CREATINE KINASE 38 IU/L (23-200)
[2018-08-06 17:02] LABS: CK INDEX 0.8; CK-MB 0.32 ng/ml (0.0-2.4); TROPONIN-I < 0.012 ng/ml (0.000-0.120)
[2018-08-06] MEDS: predniSONE 20 MG TAB PO (17:02)
[2018-08-06] MEDS: DOCUSATE SODIUM 250 MG CAP PO (20:25)
[2018-08-06] MEDS: morphine (ER) 15 MG TAB PO (20:26)
[2018-08-06] MEDS: HEPARIN 5,000 UNIT/1 ML VIAL SC (20:27)
[2018-08-06] MEDS: HYDROXYCHLOROQUINE 200 MG TAB PO (21:00)
[2018-08-07] MEDS: SOD CHLORIDE 0.9% 1,000 ML IV ×3 (00:12→18:01)
[2018-08-07 07:00] LABS: ADD MAN DIFF? NO
[2018-08-07 07:03] LABS: WHITE BLOOD COUNT 8.7 10^3/ul (4.8-10.8)
[2018-08-07 07:03] LABS: ABNORMAL IP MESSAGE 1; BASOPHILS % 0.1 % (0.0-2.0); HEMATOCRIT 26.1 % (37.0-47.0); HEMOGLOBIN 8.1 g/dl (12.0-16.0); LYMPHOCYTES # 0.5 10^3/ul (0.8-2.9); LYMPHOCYTES % 5.8 % (15.0-51.0); MEAN CORPUSCULAR HEMOGLOBIN 27.9 pg (29.0-33.0); MEAN PLATELET VOLUME 10.1 fl (7.4-10.4); MONOCYTE # 0.8 10^3/ul (0.3-0.9); MONOCYTES % 9.2 % (0.0-11.0); NEUTROPHIL # 7.3 10^3/ul (1.6-7.5); PLATELET COUNT 275 10^3/UL (140-415); RED CELL DISTRIBUTION WIDTH 15.8 % (11.5-14.5)
[2018-08-07 07:36] LABS: HEMOGLOBIN A1C 5.4 % (0-5.9)
[2018-08-07 07:48] LABS: ALANINE AMINOTRANSFERASE 8 IU/L (13-69); ALBUMIN 2.7 g/dl (3.3-4.9); ALBUMIN/GLOBULIN RATIO 0.69; ALKALINE PHOSPHATASE 177 IU/L (42-121); ANION GAP 11 (5-13); ASPARTATE AMINO TRANSFERASE 26 IU/L (15-46); BLOOD UREA NITROGEN 24 mg/dl (7-20); CALCIUM 10.1 mg/dl (8.4-10.2); CARBON DIOXIDE 18 mmol/L (21-31); CHLORIDE 108 mmol/L (97-110); CREATININE 1.46 mg/dl (0.44-1.00); Estimated GFR 36 mL/min (>60); GLUCOSE 106 mg/dl (70-220); SODIUM 137 mmol/L (135-144); TOTAL PROTEIN 6.6 g/dl (6.1-8.1)
[2018-08-07] MEDS: morphine (ER) 15 MG TAB PO ×2 (08:20→20:36)
[2018-08-07] MEDS: predniSONE 20 MG TAB PO (08:20)
[2018-08-07] MEDS: HEPARIN 5,000 UNIT/1 ML VIAL SC ×2 (08:21→21:04)
[2018-08-07] MEDS ORDERED: predniSONE 5 MG TAB PO (09:00)
[2018-08-07] MEDS: HYDROXYCHLOROQUINE 200 MG TAB PO ×2 (10:52→20:36)
[2018-08-07 11:11] LABS: ADD UMIC YES; UR ASCORBIC ACID NEGATIVE (NEGATIVE); UR BACTERIA FEW /HPF (NONE SEEN); UR BILIRUBIN (Dip) NEGATIVE (NEGATIVE); UR BLOOD (Dip) NEGATIVE (NEGATIVE); UR CLARITY CLEAR (CLEAR); UR COLOR YELLOW (YELLOW); UR GLUCOSE (Dip) NEGATIVE (NEGATIVE); UR KETONES (Dip) NEGATIVE (NEGATIVE); UR LEUKOCYTE ESTERASE (Dip) NEGATIVE Leu/ul (NEGATIVE); UR NITRITE (Dip) NEGATIVE (NEGATIVE); UR RBC 0 /HPF (0-5); UR TOTAL PROTEIN (Dip) 1+ mg/dl (NEGATIVE); UR UROBILINOGEN (Dip) NEGATIVE (NEGATIVE); UR WBC 1 /HPF (0-5)
[2018-08-07] MEDS: DOCUSATE SODIUM 250 MG CAP PO (20:36)
[2018-08-08] MEDS: SOD CHLORIDE 0.9% 1,000 ML IV ×2 (05:43→16:12)
[2018-08-08] MEDS: morphine (ER) 15 MG TAB PO (08:27)
[2018-08-08] MEDS: predniSONE 20 MG TAB PO (08:27)
[2018-08-08] MEDS: HYDROXYCHLOROQUINE 200 MG TAB PO (08:27)
[2018-08-08] MEDS: ONDANSETRON (ODT) 4 MG TAB ODT ×2 (08:43→18:24)
[2018-08-08] MEDS: HEPARIN 5,000 UNIT/1 ML VIAL SC (09:17)
[2018-08-08 16:23] LABS: ADD MAN DIFF? NO
[2018-08-08 16:28] LABS: WHITE BLOOD COUNT 9.3 10^3/ul (4.8-10.8)
[2018-08-08 16:28] LABS: ABNORMAL IP MESSAGE 1; HEMATOCRIT 26.5 % (37.0-47.0); LYMPHOCYTES # 0.4 10^3/ul (0.8-2.9); LYMPHOCYTES % 3.8 % (15.0-51.0); MEAN CORPUSCULAR HEMOGLOBIN 27.4 pg (29.0-33.0); MEAN CORPUSCULAR HGB CONC 30.2 g/dl (32.0-37.0); MEAN CORPUSCULAR VOLUME 90.8 fl (82.0-101.0); MEAN PLATELET VOLUME 9.7 fl (7.4-10.4); MONOCYTE # 0.5 10^3/ul (0.3-0.9); MONOCYTES % 5.5 % (0.0-11.0); NEUTROPHIL # 8.4 10^3/ul (1.6-7.5); NEUTROPHILS % 89.7 % (39.0-77.0); PLATELET COUNT 251 10^3/UL (140-415); RED BLOOD COUNT 2.92 10^6/ul (4.20-5.40); RED CELL DISTRIBUTION WIDTH 15.7 % (11.5-14.5)
[2018-08-08 16:30] LABS: POSITIVE DIFF @See below
[2018-08-08 16:44] LABS: ANION GAP 13 (5-13); BLOOD UREA NITROGEN 21 mg/dl (7-20); CALCIUM 9.2 mg/dl (8.4-10.2); CARBON DIOXIDE 19 mmol/L (21-31); CHLORIDE 106 mmol/L (97-110); CREATININE 1.03 mg/dl (0.44-1.00); Estimated GFR 54 mL/min (>60); GLUCOSE 123 mg/dl (70-220); POTASSIUM 3.7 mmol/L (3.5-5.1); SODIUM 138 mmol/L (135-144)
== END 2018-08-08 19:12 | disposition home or self-care (01) ==
LOC: E/R 09:24 → TEL 11:41
DX: E86.1 Hypovolemia (principal); R55 Syncope and collapse; N17.9 Acute kidney failure, unspecified; C64.9 Malignant neoplasm of unspecified kidney, except renal pelvis; M32.9 Systemic lupus erythematosus, unspecified; C79.51 Secondary malignant neoplasm of bone; Z86.718 Personal history of other venous thrombosis and embolism; Z79.4 Long term (current) use of insulin
CPT/HCPCS: 36415; 70450; 73562-50; 80048; 80053; 81001; 82550; 82553; 83036; 84484; 85025; 86850; 86900; 86901; 87086; 93005; 93306; 97161; 99285-25; G0378

== ENCOUNTER 2018-08-14 13:01 | Inpatient (IN) | payer OTHER ==
[2018-08-14] MEDS: ONDANSETRON 4 MG INJ IV ×2 (14:02→20:37)
[2018-08-14] MEDS: METHYLPREDNISOLONE 125 MG INJ IV (14:02)
[2018-08-14 14:11] LABS: ADD MAN DIFF? NO
[2018-08-14 14:16] LABS: WHITE BLOOD COUNT 12.3 10^3/ul (4.8-10.8)
[2018-08-14 14:16] LABS: ABNORMAL IP MESSAGE 1; BASOPHILS % 0.3 % (0.0-2.0); EOSINOPHILS # 0.3 10^3/ul (0.0-0.5); EOSINOPHILS % 2.6 % (0.0-7.0); HEMATOCRIT 28.1 % (37.0-47.0); HEMOGLOBIN 8.8 g/dl (12.0-16.0); LYMPHOCYTES # 0.4 10^3/ul (0.8-2.9); MEAN CORPUSCULAR HEMOGLOBIN 27.2 pg (29.0-33.0); MEAN CORPUSCULAR HGB CONC 31.3 g/dl (32.0-37.0); MEAN PLATELET VOLUME 10.5 fl (7.4-10.4); MONOCYTE # 0.6 10^3/ul (0.3-0.9); MONOCYTES % 4.9 % (0.0-11.0); NEUTROPHIL # 10.9 10^3/ul (1.6-7.5); NEUTROPHILS % 88.1 % (39.0-77.0); PLATELET COUNT 184 10^3/UL (140-415); RED BLOOD COUNT 3.23 10^6/ul (4.20-5.40); RED CELL DISTRIBUTION WIDTH 15.8 % (11.5-14.5)
[2018-08-14 14:18] LABS: POSITIVE DIFF @See below
[2018-08-14] MEDS: ALBUTEROL 0.5% (NEB) 2.5 MG/0.5 ML AMP INH (14:32)
[2018-08-14 14:34] LABS: ANION GAP 12 (5-13)
[2018-08-14 14:35] LABS: ALANINE AMINOTRANSFERASE 15 IU/L (13-69); ALBUMIN 2.6 g/dl (3.3-4.9); ALKALINE PHOSPHATASE 330 IU/L (42-121); ASPARTATE AMINO TRANSFERASE 36 IU/L (15-46); BILIRUBIN,INDIRECT 0.1 mg/dl (0-1.1); BILIRUBIN,TOTAL 0.5 mg/dl (0.2-1.3); BLOOD UREA NITROGEN 41 mg/dl (7-20); CALCIUM 8.8 mg/dl (8.4-10.2); CARBON DIOXIDE 18 mmol/L (21-31); CHLORIDE 100 mmol/L (97-110); CREATININE 2.97 mg/dl (0.44-1.00); Estimated GFR 16 mL/min (>60); GLUCOSE 108 mg/dl (70-220); LIPASE 10 U/L (23-300); SODIUM 130 mmol/L (135-144); TOTAL PROTEIN 6.3 g/dl (6.1-8.1)
[2018-08-14 14:45] LABS: B-TYPE NATRIURETIC PEPTIDE 15000 PG/ML (0-125)
[2018-08-14 14:51] LABS: ADD UMIC YES; UR ASCORBIC ACID NEGATIVE (NEGATIVE); UR BACTERIA FEW /HPF (NONE SEEN); UR BILIRUBIN (Dip) NEGATIVE (NEGATIVE); UR BLOOD (Dip) NEGATIVE (NEGATIVE); UR CLARITY CLOUDY (CLEAR); UR COLOR AMBER (YELLOW); UR GLUCOSE (Dip) NEGATIVE (NEGATIVE); UR KETONES (Dip) NEGATIVE (NEGATIVE); UR LEUKOCYTE ESTERASE (Dip) 3+ Leu/ul (NEGATIVE); UR NITRITE (Dip) NEGATIVE (NEGATIVE); UR RBC 3 /HPF (0-5); UR SPECIFIC GRAVITY (Dip) 1.014 (1.003-1.030); UR TOTAL PROTEIN (Dip) 2+ mg/dl (NEGATIVE); UR UROBILINOGEN (Dip) 2+ mg/dL (NEGATIVE); UR WBC > 182 /HPF (0-5)
[2018-08-14 15:06] LABS: TROPONIN-I 0.192 ng/ml (0.000-0.120)
[2018-08-14] MEDS: SOD CHLORIDE 0.9% 1,000 ML IV (15:50)
[2018-08-14] MEDS: ASPIRIN 81 MG TAB PO (15:51)
[2018-08-14] MEDS: CEFTRIAXONE 1 GM/50 ML (PMX) 50 ML IVPB (15:55)
[2018-08-14] MEDS ORDERED: hydrALAzine 20 MG INJ IV (16:00)
[2018-08-14] MEDS ORDERED: morphine SULFATE/PF (2 MG/2 ML) SYG IV (16:00)
[2018-08-14] MEDS ORDERED: POLYETHYLENE GLYCOL 17 GM PACKET PO (16:00)
[2018-08-14] MEDS ORDERED: LORAZEPAM 2 MG INJ IV (16:00)
[2018-08-14] MEDS ORDERED: MAGNESIUM HYDROXIDE 30ML CUP PO (16:00)
[2018-08-14] MEDS ORDERED: NACL 0.9% 3 ML SYG IV (16:00)
[2018-08-14] MEDS ORDERED: ALBUTEROL/IPRATROPIUM (NEB) 3 ML AMP HHN (16:00)
[2018-08-14] MEDS ORDERED: ACETAMINOPHEN 325 MG TAB PO (16:00)
[2018-08-14] MEDS ORDERED: NITROGLYCERIN (SL) 0.4 MG TAB SL (16:00)
[2018-08-14 16:09] LABS: INR 1.29; PROTIME 16.2 Sec (11.9-14.9); PT RATIO 1.3
[2018-08-14 16:09] LABS: CREATINE KINASE 196 IU/L (23-200)
[2018-08-14 16:10] LABS: PARTIAL THROMBOPLASTIN TIME 42.2 Sec (23.0-35.0)
[2018-08-14 16:19] LABS: CK-MB 1.56 ng/ml (0.0-2.4)
[2018-08-14 16:27] LABS: FREE T4 (FREE THYROXINE) 1.71 ng/dl (0.78-2.44)
[2018-08-14] MEDS: ALBUTEROL/IPRATROPIUM (NEB) 3 ML AMP HHN ×2 (17:00→21:24)
[2018-08-14] MEDS: INSULIN ASPART [NOVOLOG] 3 ML PEN SC ×3 (17:00→21:56)
[2018-08-14] MEDS: FUROSEMIDE 40 MG INJ IV (17:12)
[2018-08-14 17:13] LABS: LACTIC ACID 2.7 mmol/L (0.5-2.0)
[2018-08-14] MEDS ORDERED: GLUCAGON 1 MG INJ IM (18:30)
[2018-08-14] MEDS ORDERED: GLUCOSE GEL 15 GRAM TUBE PO ×2 (18:30)
[2018-08-14] MEDS ORDERED: GLUCOSE GEL 15 GRAM TUBE BUCCAL (18:30)
[2018-08-14] MEDS: DEXTROSE 5%-0.45% NACL 1,000 ML IV (19:55)
[2018-08-14] MEDS: BARIUM SULF 2% 450 ML BTL (BERRY SMOOTHIE) PO (20:30)
[2018-08-14] MEDS: FLUCONAZOLE 100 MG/50 ML (PMX) 50 ML IVPB (20:37)
[2018-08-14] MEDS ORDERED: ATORVASTATIN 10 MG TAB PO (21:00)
[2018-08-14 22:30] LABS: CREATINE KINASE 128 IU/L (23-200)
[2018-08-14 22:35] LABS: LACTIC ACID 2.7 mmol/L (0.5-2.0)
[2018-08-14] MEDS: HYDROXYCHLOROQUINE 200 MG TAB PO (22:39)
[2018-08-14 22:42] LABS: CK INDEX 1.1; CK-MB 1.35 ng/ml (0.0-2.4); TROPONIN-I 0.103 ng/ml (0.000-0.120)
[2018-08-15] MEDS: INSULIN ASPART [NOVOLOG] 3 ML PEN SC ×9 (01:07→20:27)
[2018-08-15] MEDS: ALBUTEROL/IPRATROPIUM (NEB) 3 ML AMP HHN ×6 (01:55→20:14)
[2018-08-15] MEDS: ACCU-CHEK XX (02:20)
[2018-08-15 03:52] LABS: ADD MAN DIFF? NO
[2018-08-15 04:07] LABS: HEMOGLOBIN A1C 5.5 % (0-5.9)
[2018-08-15 04:09] LABS: WHITE BLOOD COUNT 7.5 10^3/ul (4.8-10.8)
[2018-08-15 04:09] LABS: ABNORMAL IP MESSAGE 1; BASOPHILS % 0.3 % (0.0-2.0); EOSINOPHILS % 0.3 % (0.0-7.0); LYMPHOCYTES # 0.3 10^3/ul (0.8-2.9); LYMPHOCYTES % 4.5 % (15.0-51.0); MEAN CORPUSCULAR HEMOGLOBIN 27.5 pg (29.0-33.0); MEAN CORPUSCULAR VOLUME 85.9 fl (82.0-101.0); MONOCYTE # 0.2 10^3/ul (0.3-0.9); MONOCYTES % 2.1 % (0.0-11.0); NEUTROPHILS % 92.4 % (39.0-77.0); PLATELET COUNT 167 10^3/UL (140-415); RED BLOOD COUNT 2.91 10^6/ul (4.20-5.40); RED CELL DISTRIBUTION WIDTH 16.1 % (11.5-14.5)
[2018-08-15 04:12] LABS: ANION GAP 13 (5-13); BLOOD UREA NITROGEN 48 mg/dl (7-20); CALCIUM 8.3 mg/dl (8.4-10.2); CARBON DIOXIDE 19 mmol/L (21-31); CHLORIDE 101 mmol/L (97-110); CREATININE 3.33 mg/dl (0.44-1.00); Estimated GFR 14 mL/min (>60); GLUCOSE 214 mg/dl (70-220); MAGNESIUM 1.3 mg/dl (1.7-2.5); PHOSPHORUS 2.5 mg/dl (2.5-4.9); POTASSIUM 3.8 mmol/L (3.5-5.1); SODIUM 133 mmol/L (135-144)
[2018-08-15 04:13] LABS: CHOLESTEROL 104 mg/dl (100-200)
[2018-08-15 04:13] LABS: CHOL/HDL RATIO 4.5 RATIO; HDL CHOLESTEROL 23 mg/dl (35-98); LDL CHOLESTEROL,CALCULATED 52 mg/dl; TRIGLYCERIDES 146 mg/dl (0-149)
[2018-08-15 04:30] LABS: POSITIVE DIFF @See below
[2018-08-15] MEDS: ONDANSETRON 4 MG INJ IV ×2 (04:34→13:18)
[2018-08-15 04:42] LABS: THYROID STIMULATING HORMONE 0.497 MIU/L (0.465-4.680)
[2018-08-15] MEDS: PANTOPRAZOLE (EC) 40 MG TAB PO (05:28)
[2018-08-15] MEDS: MAGNESIUM SULFATE 3 GM in DEXTROSE 5% 100 ML IVPB (05:46)
[2018-08-15] MEDS: ASPIRIN (EC) 325 MG TAB PO (09:00)
[2018-08-15] MEDS ORDERED: MAGNESIUM SULFATE 2 GM/50 ML 50 ML IVPB (09:00)
[2018-08-15] MEDS: predniSONE 5 MG TAB PO (09:00)
[2018-08-15] MEDS: HYDROXYCHLOROQUINE 200 MG TAB PO ×2 (09:00→20:19)
[2018-08-15] MEDS: DEXTROSE 5%-0.9% NACL 1,000 ML IV (10:45)
[2018-08-15] MEDS: CEFTRIAXONE 1 GM/50 ML (PMX) 50 ML IVPB (13:06)
[2018-08-15] MEDS: FLUCONAZOLE 100 MG/50 ML IVPB (13:58)
[2018-08-15] MEDS: INSULIN GLARGINE [LANTus] (100 UNITS/ML) SYG SC (15:45)
[2018-08-15 16:54] LABS: CREATININE,URINE RANDOM 13.99 mg/dl (20-320); PROTEIN/CREAT RATIO 3.93 RATIO
[2018-08-15] MEDS: SOD CHLORIDE 0.9% 1,000 ML IV (20:09)
[2018-08-15] MEDS: HYDROCORTISONE 100 MG INJ IV (22:13)
[2018-08-16] MEDS: INSULIN ASPART [NOVOLOG] 3 ML PEN SC ×9 (01:00→20:23)
[2018-08-16] MEDS: ALBUTEROL/IPRATROPIUM (NEB) 3 ML AMP HHN ×6 (01:02→20:08)
[2018-08-16] MEDS: ACCU-CHEK XX (01:38)
[2018-08-16] MEDS: PANTOPRAZOLE (EC) 40 MG TAB PO (05:43)
[2018-08-16] MEDS: HYDROCORTISONE 100 MG INJ IV ×2 (05:47→20:23)
[2018-08-16 06:25] LABS: ADD MAN DIFF? NO
[2018-08-16 06:34] LABS: ABNORMAL IP MESSAGE 1; BASOPHILS % 0.1 % (0.0-2.0); EOSINOPHILS % 0.1 % (0.0-7.0); HEMATOCRIT 24.1 % (37.0-47.0); HEMOGLOBIN 7.8 g/dl (12.0-16.0); LYMPHOCYTES # 0.2 10^3/ul (0.8-2.9); LYMPHOCYTES % 0.9 % (15.0-51.0); MEAN CORPUSCULAR HEMOGLOBIN 27.5 pg (29.0-33.0); MEAN CORPUSCULAR HGB CONC 32.4 g/dl (32.0-37.0); MEAN CORPUSCULAR VOLUME 84.9 fl (82.0-101.0); MEAN PLATELET VOLUME 10.7 fl (7.4-10.4); MONOCYTE # 0.4 10^3/ul (0.3-0.9); MONOCYTES % 1.5 % (0.0-11.0); NEUTROPHIL # 23.1 10^3/ul (1.6-7.5); NEUTROPHILS % 96.7 % (39.0-77.0); PLATELET COUNT 155 10^3/UL (140-415); RED BLOOD COUNT 2.84 10^6/ul (4.20-5.40); RED CELL DISTRIBUTION WIDTH 16.2 % (11.5-14.5)
[2018-08-16 06:34] LABS: WHITE BLOOD COUNT 23.9 10^3/ul (4.8-10.8)
[2018-08-16 06:47] LABS: ANION GAP 11 (5-13); BLOOD UREA NITROGEN 58 mg/dl (7-20); CALCIUM 7.7 mg/dl (8.4-10.2); CARBON DIOXIDE 17 mmol/L (21-31); CHLORIDE 104 mmol/L (97-110); CREATININE 3.38 mg/dl (0.44-1.00); Estimated GFR 14 mL/min (>60); GLUCOSE 133 mg/dl (70-220); POTASSIUM 3.5 mmol/L (3.5-5.1); SODIUM 132 mmol/L (135-144)
[2018-08-16 06:50] LABS: POSITIVE DIFF @See below
[2018-08-16] MEDS: ASPIRIN (EC) 325 MG TAB PO (09:28)
[2018-08-16] MEDS: CEFTRIAXONE 1 GM/50 ML (PMX) 50 ML IVPB (09:28)
[2018-08-16] MEDS: HYDROXYCHLOROQUINE 200 MG TAB PO ×2 (09:28→20:23)
[2018-08-16] MEDS: SOD CHLORIDE 0.9% 1,000 ML IV ×2 (09:29→20:21)
[2018-08-16] MEDS: INSULIN GLARGINE [LANTus] (100 UNITS/ML) SYG SC (09:37)
[2018-08-16] MEDS: FLUCONAZOLE 100 MG/50 ML IVPB (12:11)
[2018-08-16] MEDS: ONDANSETRON 4 MG INJ IV ×2 (12:19→20:24)
[2018-08-16] MEDS: HYDROCODONE/APAP (5/325) TAB PO (14:56)
[2018-08-16] MEDS: AMPICILLIN 1 GM/NS (PMX) 50 ML IVPB ×2 (14:57→20:23)
[2018-08-17] MEDS: ALBUTEROL/IPRATROPIUM (NEB) 3 ML AMP HHN ×6 (00:39→21:00)
[2018-08-17] MEDS: INSULIN ASPART [NOVOLOG] 3 ML PEN SC ×9 (01:00→20:39)
[2018-08-17] MEDS: ACCU-CHEK XX (02:00)
[2018-08-17 06:03] LABS: ADD MAN DIFF? NO
[2018-08-17 06:11] LABS: WHITE BLOOD COUNT 21.8 10^3/ul (4.8-10.8)
[2018-08-17 06:11] LABS: ABNORMAL IP MESSAGE 1; BASOPHILS % 0.1 % (0.0-2.0); EOSINOPHILS % 0.1 % (0.0-7.0); HEMATOCRIT 23.7 % (37.0-47.0); HEMOGLOBIN 7.5 g/dl (12.0-16.0); LYMPHOCYTES # 0.2 10^3/ul (0.8-2.9); LYMPHOCYTES % 0.9 % (15.0-51.0); MEAN CORPUSCULAR HEMOGLOBIN 26.9 pg (29.0-33.0); MEAN CORPUSCULAR HGB CONC 31.6 g/dl (32.0-37.0); MEAN CORPUSCULAR VOLUME 84.9 fl (82.0-101.0); MEAN PLATELET VOLUME 11.4 fl (7.4-10.4); MONOCYTE # 0.4 10^3/ul (0.3-0.9); MONOCYTES % 1.7 % (0.0-11.0); NEUTROPHILS % 96.2 % (39.0-77.0); NUCLEATED RED BLOOD CELLS% 0.1 /100WBC (0.0-0.0); PLATELET COUNT 178 10^3/UL (140-415); RED BLOOD COUNT 2.79 10^6/ul (4.20-5.40); RED CELL DISTRIBUTION WIDTH 16.4 % (11.5-14.5)
[2018-08-17 06:41] LABS: ALANINE AMINOTRANSFERASE 25 IU/L (13-69); ALBUMIN 2.1 g/dl (3.3-4.9); ALBUMIN/GLOBULIN RATIO 0.65; ALKALINE PHOSPHATASE 221 IU/L (42-121); ANION GAP 14 (5-13); ASPARTATE AMINO TRANSFERASE 16 IU/L (15-46); BLOOD UREA NITROGEN 60 mg/dl (7-20); CARBON DIOXIDE 15 mmol/L (21-31); CHLORIDE 105 mmol/L (97-110); CREATININE 3.89 mg/dl (0.44-1.00); Estimated GFR 12 mL/min (>60); GLUCOSE 96 mg/dl (70-220); POTASSIUM 3.5 mmol/L (3.5-5.1); SODIUM 134 mmol/L (135-144); TOTAL PROTEIN 5.3 g/dl (6.1-8.1)
[2018-08-17] MEDS: AMPICILLIN 1 GM/NS (PMX) 50 ML IVPB ×3 (06:46→20:39)
[2018-08-17] MEDS: PANTOPRAZOLE (EC) 40 MG TAB PO (06:46)
[2018-08-17 06:48] LABS: IRON 72 ug/dl (35-150)
[2018-08-17 06:50] LABS: POSITIVE DIFF @See below
[2018-08-17 06:58] LABS: % IRON SATURATION 54 % SAT (22-52); TOTAL IRON BINDING CAPACITY 134 ug/dl (241-421)
[2018-08-17] MEDS: SOD CHLORIDE 0.9% 1,000 ML IV ×2 (07:41→20:39)
[2018-08-17] MEDS: CEFTRIAXONE 1 GM/50 ML (PMX) 50 ML IVPB (08:07)
[2018-08-17] MEDS: DOCUSATE SODIUM 100 MG CAP PO (08:07)
[2018-08-17] MEDS: ASPIRIN (EC) 325 MG TAB PO (08:07)
[2018-08-17] MEDS: HYDROCORTISONE 100 MG INJ IV (08:34)
[2018-08-17] MEDS: HYDROXYCHLOROQUINE 200 MG TAB PO ×2 (08:34→20:39)
[2018-08-17] MEDS: INSULIN GLARGINE [LANTus] (100 UNITS/ML) SYG SC (08:38)
[2018-08-17] MEDS: ONDANSETRON 4 MG INJ IV ×2 (08:46→13:25)
[2018-08-17] MEDS: HYDROCODONE/APAP (5/325) TAB PO (08:46)
[2018-08-17] MEDS: FLUCONAZOLE 100 MG/50 ML IVPB (08:56)
[2018-08-18] MEDS: INSULIN ASPART [NOVOLOG] 3 ML PEN SC ×9 (01:00→20:13)
[2018-08-18] MEDS: ALBUTEROL/IPRATROPIUM (NEB) 3 ML AMP HHN ×6 (01:00→21:06)
[2018-08-18] MEDS: ACCU-CHEK XX (02:00)
[2018-08-18] MEDS: PANTOPRAZOLE (EC) 40 MG TAB PO (05:59)
[2018-08-18] MEDS: AMPICILLIN 1 GM/NS (PMX) 50 ML IVPB ×3 (05:59→22:00)
[2018-08-18 06:12] LABS: ADD MAN DIFF? NO
[2018-08-18 06:14] LABS: WHITE BLOOD COUNT 17.6 10^3/ul (4.8-10.8)
[2018-08-18 06:14] LABS: ABNORMAL IP MESSAGE 1; BASOPHILS % 0.1 % (0.0-2.0); EOSINOPHILS # 0.2 10^3/ul (0.0-0.5); EOSINOPHILS % 1.1 % (0.0-7.0); HEMATOCRIT 24.5 % (37.0-47.0); HEMOGLOBIN 7.8 g/dl (12.0-16.0); LYMPHOCYTES # 0.1 10^3/ul (0.8-2.9); LYMPHOCYTES % 0.6 % (15.0-51.0); MEAN CORPUSCULAR HEMOGLOBIN 27.1 pg (29.0-33.0); MEAN CORPUSCULAR HGB CONC 31.8 g/dl (32.0-37.0); MEAN CORPUSCULAR VOLUME 85.1 fl (82.0-101.0); MEAN PLATELET VOLUME 11.7 fl (7.4-10.4); MONOCYTE # 0.2 10^3/ul (0.3-0.9); MONOCYTES % 1.1 % (0.0-11.0); NEUTROPHIL # 16.9 10^3/ul (1.6-7.5); NEUTROPHILS % 96.2 % (39.0-77.0); NUCLEATED RED BLOOD CELLS% 0.1 /100WBC (0.0-0.0); PLATELET COUNT 190 10^3/UL (140-415); RED BLOOD COUNT 2.88 10^6/ul (4.20-5.40); RED CELL DISTRIBUTION WIDTH 16.7 % (11.5-14.5)
[2018-08-18 06:35] LABS: POSITIVE DIFF @See below
[2018-08-18 06:53] LABS: ALANINE AMINOTRANSFERASE 20 IU/L (13-69); ALBUMIN 2.2 g/dl (3.3-4.9); ALBUMIN/GLOBULIN RATIO 0.66; ALKALINE PHOSPHATASE 207 IU/L (42-121); ANION GAP 14 (5-13); ASPARTATE AMINO TRANSFERASE 13 IU/L (15-46); BLOOD UREA NITROGEN 62 mg/dl (7-20); CALCIUM 7.8 mg/dl (8.4-10.2); CARBON DIOXIDE 14 mmol/L (21-31); CHLORIDE 105 mmol/L (97-110); CREATININE 3.98 mg/dl (0.44-1.00); Estimated GFR 11 mL/min (>60); GLUCOSE 62 mg/dl (70-220); PHOSPHORUS 2.7 mg/dl (2.5-4.9); POTASSIUM 3.2 mmol/L (3.5-5.1); SODIUM 133 mmol/L (135-144); TOTAL PROTEIN 5.5 g/dl (6.1-8.1); URIC ACID 5.8 mg/dl (3.1-7.9)
[2018-08-18] MEDS: CEFTRIAXONE 1 GM/50 ML (PMX) 50 ML IVPB (08:16)
[2018-08-18] MEDS: ASPIRIN (EC) 325 MG TAB PO (08:16)
[2018-08-18] MEDS: HYDROCORTISONE 100 MG INJ IV (08:30)
[2018-08-18] MEDS: ONDANSETRON 4 MG INJ IV ×2 (08:41→20:28)
[2018-08-18] MEDS: FLUCONAZOLE 100 MG/50 ML IVPB (09:22)
[2018-08-18] MEDS: HYDROXYCHLOROQUINE 200 MG TAB PO ×2 (09:22→20:13)
[2018-08-18] MEDS: INSULIN GLARGINE [LANTus] (100 UNITS/ML) SYG SC (09:35)
[2018-08-18] MEDS: POTASSIUM CHLORIDE 100 ML IVPB ×2 (12:23→16:06)
[2018-08-18] MEDS: SOD CHLORIDE 0.9% 1,000 ML IV ×2 (12:24→22:30)
[2018-08-18 12:54] LABS: SODIUM,URINE RANDOM 77 mmol/L (30-90)
[2018-08-18 12:54] LABS: CREATININE,URINE RANDOM 17.19 mg/dl (20-320)
[2018-08-18] MEDS: METOCLOPRAMIDE 10 MG TAB PO (13:41)
[2018-08-18] MEDS: POTASSIUM CHLORIDE (SR) 20 MEQ TAB PO (18:47)
[2018-08-18] MEDS: NYSTATIN SUSP 5 ML CUP PO ×2 (18:47→20:13)
[2018-08-19] MEDS: INSULIN ASPART [NOVOLOG] 3 ML PEN SC ×9 (01:00→21:00)
[2018-08-19] MEDS: ALBUTEROL/IPRATROPIUM (NEB) 3 ML AMP HHN ×6 (01:58→21:20)
[2018-08-19] MEDS: ACCU-CHEK XX (02:00)
[2018-08-19 06:10] LABS: ADD MAN DIFF? NO
[2018-08-19 06:28] LABS: HEMOGLOBIN 9.2 g/dl (12.0-16.0); RED BLOOD COUNT 3.43 10^6/ul (4.20-5.40)
[2018-08-19 06:29] LABS: ABNORMAL IP MESSAGE 1; BASOPHILS % 0.1 % (0.0-2.0); EOSINOPHILS # 0.5 10^3/ul (0.0-0.5); EOSINOPHILS % 2.9 % (0.0-7.0); HEMATOCRIT 28.8 % (37.0-47.0); LYMPHOCYTES # 0.4 10^3/ul (0.8-2.9); LYMPHOCYTES % 2.4 % (15.0-51.0); MEAN CORPUSCULAR HEMOGLOBIN 26.8 pg (29.0-33.0); MEAN CORPUSCULAR HGB CONC 31.9 g/dl (32.0-37.0); MEAN PLATELET VOLUME 11.1 fl (7.4-10.4); MONOCYTE # 0.2 10^3/ul (0.3-0.9); MONOCYTES % 1.5 % (0.0-11.0); NEUTROPHIL # 14.8 10^3/ul (1.6-7.5); NEUTROPHILS % 92.3 % (39.0-77.0); NUCLEATED RED BLOOD CELLS% 0.2 /100WBC (0.0-0.0); PLATELET COUNT 144 10^3/UL (140-415); RED CELL DISTRIBUTION WIDTH 16.8 % (11.5-14.5)
[2018-08-19] MEDS: PANTOPRAZOLE (EC) 40 MG TAB PO (06:33)
[2018-08-19] MEDS: AMPICILLIN 1 GM/NS (PMX) 50 ML IVPB ×3 (06:33→21:32)
[2018-08-19 06:36] LABS: POSITIVE DIFF @See below
[2018-08-19 06:58] LABS: ALANINE AMINOTRANSFERASE 27 IU/L (13-69); ALBUMIN 2.4 g/dl (3.3-4.9); ALBUMIN/GLOBULIN RATIO 0.75; ALKALINE PHOSPHATASE 248 IU/L (42-121); ANION GAP 13 (5-13); ASPARTATE AMINO TRANSFERASE 21 IU/L (15-46); BLOOD UREA NITROGEN 66 mg/dl (7-20); CARBON DIOXIDE 14 mmol/L (21-31); CHLORIDE 109 mmol/L (97-110); Estimated GFR 11 mL/min (>60); GLUCOSE 68 mg/dl (70-220); MAGNESIUM 1.9 mg/dl (1.7-2.5); PHOSPHORUS 2.9 mg/dl (2.5-4.9); POTASSIUM 3.7 mmol/L (3.5-5.1); SODIUM 136 mmol/L (135-144); TOTAL PROTEIN 5.6 g/dl (6.1-8.1)
[2018-08-19 07:27] LABS: ANISOCYTOSIS 2+ (0-0); BAND NEUTROPHILS #M 0.4 10^3/ul (0.0-0.6); BAND NEUTROPHILS % (M) 3 % (0-4); EOSINOPHILS % (M) 2 % (0-7); GIANT THROMBO% (M) 1 % (0-0); HYPOCHROMASIA 2+ (0-0); PLATELET ESTIMATE NORMAL; POIKILOCYTOSIS 1+ (0-0); POLYCHROMASIA 3+ (0-0); SEG NEUT #M 15.3 10^3/ul (1.6-7.5); SEGMENTED NEUTROPHILS (M) % 95 % (39-77); SMUDGE%M 3 % (0-0); TARGET CELLS 1+ (0-0)
[2018-08-19] MEDS: CEFTRIAXONE 1 GM/50 ML (PMX) 50 ML IVPB (08:18)
[2018-08-19] MEDS: NYSTATIN SUSP 5 ML CUP PO ×4 (08:18→21:24)
[2018-08-19] MEDS: ASPIRIN (EC) 325 MG TAB PO (08:18)
[2018-08-19] MEDS: HYDROXYCHLOROQUINE 200 MG TAB PO ×2 (08:18→21:24)
[2018-08-19] MEDS: INSULIN GLARGINE [LANTus] (100 UNITS/ML) SYG SC (08:23)
[2018-08-19] MEDS: FLUCONAZOLE 100 MG/50 ML IVPB (09:06)
[2018-08-19] MEDS: SOD CHLORIDE 0.9% 1,000 ML IV ×3 (11:00→22:52)
[2018-08-19] MEDS: HYDROCODONE/APAP (5/325) TAB PO (11:32)
[2018-08-19] MEDS: DEXTROSE 50% 50 ML SYRINGE IV ×2 (11:46→18:28)
[2018-08-19] MEDS: morphine LIQ (10 MG/5 ML) CUP PO (13:46)
[2018-08-20] MEDS: ACCU-CHEK XX (02:00)
[2018-08-20] MEDS: ALBUTEROL/IPRATROPIUM (NEB) 3 ML AMP HHN ×6 (02:39→22:27)
[2018-08-20] MEDS: AMPICILLIN 1 GM/NS (PMX) 50 ML IVPB (05:49)
[2018-08-20] MEDS: PANTOPRAZOLE (EC) 40 MG TAB PO (05:49)
[2018-08-20 06:26] LABS: ABNORMAL IP MESSAGE 1; HEMATOCRIT 27.5 % (37.0-47.0); HEMOGLOBIN 8.6 g/dl (12.0-16.0); MEAN CORPUSCULAR HGB CONC 31.3 g/dl (32.0-37.0); MEAN CORPUSCULAR VOLUME 86.5 fl (82.0-101.0); MEAN PLATELET VOLUME 12.4 fl (7.4-10.4); NUCLEATED RED BLOOD CELLS% 0.2 /100WBC (0.0-0.0); PLATELET COUNT 120 10^3/UL (140-415); RED BLOOD COUNT 3.18 10^6/ul (4.20-5.40); RED CELL DISTRIBUTION WIDTH 17.5 % (11.5-14.5)
[2018-08-20 06:26] LABS: WHITE BLOOD COUNT 13.2 10^3/ul (4.8-10.8)
[2018-08-20 06:31] LABS: POSITIVE DIFF @See below
[2018-08-20 06:32] LABS: ADD MAN DIFF? YES
[2018-08-20 07:05] LABS: ANION GAP 20 (5-13); BLOOD UREA NITROGEN 64 mg/dl (7-20); CALCIUM 7.8 mg/dl (8.4-10.2); CARBON DIOXIDE 14 mmol/L (21-31); CHLORIDE 107 mmol/L (97-110); CREATININE 3.86 mg/dl (0.44-1.00); Estimated GFR 12 mL/min (>60); GLUCOSE 67 mg/dl (70-220); POTASSIUM 3.7 mmol/L (3.5-5.1); SODIUM 141 mmol/L (135-144)
[2018-08-20 07:24] LABS: ANISOCYTOSIS 1+ (0-0); BURR CELLS 3+ (0-0); EOSINOPHILS % (M) 16 % (0-7); GIANT THROMBO% (M) 1 % (0-0); HYPOCHROMASIA 1+ (0-0); LYMPHOCYTES #M 0.5 10^3/ul (0.8-2.9); LYMPHOCYTES % (M) 4 % (15-51); PLATELET ESTIMATE DECREASED; POIKILOCYTOSIS 2+ (0-0); POLYCHROMASIA 1+ (0-0); SEGMENTED NEUTROPHILS (M) % 80 % (39-77); SMUDGE%M 5 % (0-0)
[2018-08-20] MEDS: INSULIN ASPART [NOVOLOG] 3 ML PEN SC ×7 (07:42→21:00)
[2018-08-20] MEDS: ASPIRIN (EC) 325 MG TAB PO (08:56)
[2018-08-20] MEDS: NYSTATIN SUSP 5 ML CUP PO ×4 (08:57→21:10)
[2018-08-20] MEDS: CEFTRIAXONE 1 GM/50 ML (PMX) 50 ML IVPB (08:57)
[2018-08-20] MEDS: HYDROXYCHLOROQUINE 200 MG TAB PO ×2 (08:57→21:10)
[2018-08-20] MEDS: INSULIN GLARGINE [LANTus] (100 UNITS/ML) SYG SC (09:05)
[2018-08-20] MEDS: FLUCONAZOLE 100 MG/50 ML IVPB (09:47)
[2018-08-20] MEDS ORDERED: SODIUM BICARBONATE (IV ADD) 100 MEQ in DEXTROSE 5% 900 ML IV (10:00)
[2018-08-20] MEDS: FUROSEMIDE 20 MG INJ IV (10:24)
[2018-08-20] MEDS: CITRIC ACID/NA CITRATE 30 ML CUP PO ×2 (11:34→21:10)
[2018-08-20] MEDS: PIPER-TAZO 2.25 GM (PMX) 50 ML IVPB ×2 (13:36→21:10)
[2018-08-20] MEDS ORDERED: EPOETIN ALFA (NESRD) 3,000 UNITS/ML VIAL SC ×2 (17:00)
[2018-08-20] MEDS: EPOETIN 10000 UNITS/1 ML INJ (ESRD) SC (17:30)
[2018-08-21] MEDS: ACCU-CHEK XX (01:38)
[2018-08-21] MEDS: ALBUTEROL/IPRATROPIUM (NEB) 3 ML AMP HHN ×5 (01:39→17:19)
[2018-08-21] MEDS: PANTOPRAZOLE (EC) 40 MG TAB PO (05:22)
[2018-08-21] MEDS: PIPER-TAZO 2.25 GM (PMX) 50 ML IVPB ×2 (05:22→13:51)
[2018-08-21 06:57] LABS: ABNORMAL IP MESSAGE 1; HEMATOCRIT 24.4 % (37.0-47.0); HEMOGLOBIN 8.1 g/dl (12.0-16.0); MEAN CORPUSCULAR HGB CONC 33.2 g/dl (32.0-37.0); MEAN CORPUSCULAR VOLUME 81.3 fl (82.0-101.0); MEAN PLATELET VOLUME 12.1 fl (7.4-10.4); PLATELET COUNT 92 10^3/UL (140-415)
[2018-08-21 06:57] LABS: WHITE BLOOD COUNT 11.6 10^3/ul (4.8-10.8)
[2018-08-21 07:08] LABS: ADD MAN DIFF? YES; POSITIVE DIFF @See below
[2018-08-21 07:36] LABS: ALANINE AMINOTRANSFERASE 34 IU/L (13-69); ALBUMIN 1.9 g/dl (3.3-4.9); ALBUMIN/GLOBULIN RATIO 0.67; ALKALINE PHOSPHATASE 231 IU/L (42-121); ANION GAP 18 (5-13); ASPARTATE AMINO TRANSFERASE 17 IU/L (15-46); BLOOD UREA NITROGEN 67 mg/dl (7-20); CALCIUM 7.8 mg/dl (8.4-10.2); CARBON DIOXIDE 18 mmol/L (21-31); CHLORIDE 105 mmol/L (97-110); CREATININE 3.69 mg/dl (0.44-1.00); Estimated GFR 12 mL/min (>60); POTASSIUM 3.3 mmol/L (3.5-5.1); SODIUM 141 mmol/L (135-144); TOTAL PROTEIN 4.7 g/dl (6.1-8.1)
[2018-08-21 07:45] LABS: ANISOCYTOSIS 1+ (0-0); BAND NEUTROPHILS #M 0.1 10^3/ul (0.0-0.6); BAND NEUTROPHILS % (M) 1 % (0-4); BURR CELLS 1+ (0-0); EOSINOPHILS % (M) 13 % (0-7); GIANT THROMBO% (M) 12 % (0-0); LYMPHOCYTES #M 0.9 10^3/ul (0.8-2.9); LYMPHOCYTES % (M) 8 % (15-51); MONOCYTE #M 0.1 10^3/ul (0.3-0.9); MONOCYTES % (M) 1 % (0-11); PLATELET ESTIMATE DECREASED; POIKILOCYTOSIS 1+ (0-0); POLYCHROMASIA 1+ (0-0); REACTIVE LYMPHOCYTES #M 0.1 10^3/ul (0.0-0.0); REACTIVE LYMPHOCYTES% (M) 1 % (0-0); SEG NEUT #M 8.8 10^3/ul (1.6-7.5); SEGMENTED NEUTROPHILS (M) % 76 % (39-77); SMUDGE%M 37 % (0-0); TARGET CELLS 1+ (0-0)
[2018-08-21 07:51] LABS: GLUCOSE 50 mg/dl (70-220)
[2018-08-21] MEDS: INSULIN ASPART [NOVOLOG] 3 ML PEN SC ×6 (07:55→16:18)
[2018-08-21] MEDS: NYSTATIN SUSP 5 ML CUP PO ×3 (08:35→17:06)
[2018-08-21] MEDS: ASPIRIN (EC) 325 MG TAB PO (08:35)
[2018-08-21] MEDS: DEXTROSE 50% 50 ML SYRINGE IV (08:35)
[2018-08-21] MEDS: INSULIN GLARGINE [LANTus] (100 UNITS/ML) SYG SC (08:35)
[2018-08-21] MEDS: HYDROXYCHLOROQUINE 200 MG TAB PO (08:35)
[2018-08-21] MEDS: FLUCONAZOLE 100 MG/50 ML IVPB (08:57)
[2018-08-21 08:59] LABS: GLUCOSE, FASTING 53 mg/dl (70-110)
[2018-08-21] MEDS: CITRIC ACID/SODIUM CITRATE 15 ML CUP PO (12:12)
[2018-08-21] MEDS: POTASSIUM CHLORIDE (SR) 20 MEQ TAB PO ×2 (12:12→17:06)
== END 2018-08-21 18:46 | disposition hospice, home (50) | DRG 291 ==
LOC: E/R 13:01 → TEL 16:01
DX: I13.0 Hypertensive heart and chronic kidney disease with heart failure and stage 1 through stage 4 chronic kidney disease, or unspecified chronic kidney disease (principal); N17.0 Acute kidney failure with tubular necrosis; I50.21 Acute systolic (congestive) heart failure; N39.0 Urinary tract infection, site not specified; J44.1 Chronic obstructive pulmonary disease with (acute) exacerbation; C79.51 Secondary malignant neoplasm of bone; C78.02 Secondary malignant neoplasm of left lung; C78.01 Secondary malignant neoplasm of right lung; C78.1 Secondary malignant neoplasm of mediastinum; B37.0 Candidal stomatitis; E87.1 Hypo-osmolality and hyponatremia; N18.4 Chronic kidney disease, stage 4 (severe); B95.2 Enterococcus as the cause of diseases classified elsewhere; D63.0 Anemia in neoplastic disease; D63.1 Anemia in chronic kidney disease; E78.5 Hyperlipidemia, unspecified; E11.22 Type 2 diabetes mellitus with diabetic chronic kidney disease; E83.42 Hypomagnesemia; M32.9 Systemic lupus erythematosus, unspecified; Z66 Do not resuscitate; Z85.528 Personal history of other malignant neoplasm of kidney; Z90.5 Acquired absence of kidney; Z86.718 Personal history of other venous thrombosis and embolism; Z79.4 Long term (current) use of insulin; Z79.52 Long term (current) use of systemic steroids
CPT/HCPCS: 36415; 71045; 71250; 74176; 80048; 80053; 80061; 81001; 81003; 82550; 82553; 82570; 82728; 82947; 82962; 83036; 83540; 83605; 83690; 83735; 83880; 84100; 84155; 84300; 84439; 84443; 84484; 84560; 85025; 85610; 85730; 86850; 86900; 86901; 87040; 87081; 87086; 87400; 89190; 92526; 92610; 93005; 94640; 94644; 94664; 96374; 96375; 97110; 97116; 97162; 97167; 97530; 97535; 99291-25